=== PATIENT | female | born 1945 | race Caucasian/White ===

== ENCOUNTER → 2017-05-20 | Outpatient (CLI) | payer OTHER, BC ==
[~2017-05-20] MED LIST: ACYCLOVIR 200200 MG PO; ADULT LOW DOSE81 MG PO; ESTRACE0.5 MG PO; ESTRADIOL VAGINAL CR; FOSINOPRIL SODI20 MG PO; HYDROCHLOROTH12.5 MG PO; IBUPROFEN 800800 M1 PO; LIPITOR20 MG PO; LISINOPRIL20 MG PO; LOFIBRA160 MG PO; MACROBID 100 M100 M1 PO; MOBIC15 MG PO; MUCINEX600 MG PO; NEXIUM40 MG PO; NORCO 5-325 TA1 EACH PO; NORVASC 5 MG TAB5 MG PO; ONDANSETRON HCL4 M2 PO; PERCOCET PO; PROTONIX40 M2 PO; PYRIDIUM200 MG PO; SYMAX; TRAMADOL 50 MG50 MG PO; TRICOR145 MG PO; ZOFRAN ODT4 MG PO
== END ==
LOC: MRI 08:36
DX: M51.36 Other intervertebral disc degeneration, lumbar region (principal)

== ENCOUNTER → 2017-05-28 | Outpatient (CLI) | payer OTHER, BC ==
[~2017-05-28] VITALS: Ht 152.4 cm; Wt 94.8 kg
[~2017-05-28] MED LIST changes: +FOSINOPRIL SODI20 M1 PO; +HAIR, SKIN & N1 EAC1 PO; +MELOXICAM7.5 MG PO
[2017-05-28 12:42] VITALS: BP 163/74
== END | disposition home or self-care (01) ==
LOC: PAIN 07:31
DX: M54.16 Radiculopathy, lumbar region (principal); M54.9 Dorsalgia, unspecified; G89.29 Other chronic pain; I10 Essential (primary) hypertension; K21.9 Gastro-esophageal reflux disease without esophagitis; Z90.49 Acquired absence of other specified parts of digestive tract; E78.5 Hyperlipidemia, unspecified; Z98.890 Other specified postprocedural states; Z88.0 Allergy status to penicillin; Z88.8 Allergy status to other drugs, medicaments and biological substances; Z79.899 Other long term (current) drug therapy

== ENCOUNTER → 2017-06-12 | Outpatient (CLI) | payer OTHER, BC ==
[~2017-06-12] VITALS: Ht 152.4 cm; Wt 93.4 kg
[~2017-06-12] MED LIST changes: +VITAMIN D1000 UNI1 PO
--- NOTE | ~2017-06-12 | HPC ---
[facility] [place] [address] PAIN MANAGEMENT CONSULTATION Name: ANGELINA CRUZ Room #: REG CLCristobal Mccormick#: [id number] Admission: 06/12/17 Attend Phys: Jesus Molina DO Discharge: Date of : 47 Report #: [id number] THIS REPORT FOR: //name// CC: Mike Molina The patient is a 71-year-old female, prior seen in the pain clinic 05/28/2017, diagnosed with symptomatic lumbar radiculopathy, given midline epidural injection at L3-L4 for ongoing radicular symptoms. She returns to pain clinic today noting that injection afforded nominal relief. Complaining of ongoing pain, right buttock down the leg in an L3 distribution, anterior thigh into the groin. We reviewed MRI findings noting L3-L4 to have a right foraminal disk protrusion about 7 mm with moderate right ligamentum flavum hypertrophy and severe right neural foraminal stenosis. ASSESSMENT: Symptomatic lumbar radiculopathy, right L3 distribution. RECOMMENDATION: Discussion with the patient today about therapeutic option. Right L3-L4 transforaminal epidural injection today to help with ongoing radicular symptoms. If this does not afford adequate relief given a rather severe neural foraminal stenosis, we will refer to surgery for more definitive intervention. The patient is hopeful that she can avoid surgery. Physical exam shows 71-year-old female, BMI is elevated at 40.2. Vital signs are stable as noted in the EMR. Rises from chair using armrest, moderately antalgic gait favoring the right leg. Right hip flexion strength is diminished. Pain wraps around the hip, anterior thigh into the medial aspect compatible with an L3 distribution. ASSESSMENT: Symptomatic lumbar radiculopathy, component of axial back pain fairly nominal. PROCEDURE: Right L3-L4 transforaminal epidural injection under fluoroscopy. PROCEDURE: Transforaminal lumbar epidural injection under fluoroscopy. PROCEDURE NOTE: After both written and informed consent was obtained including risk of spinal cord damage, infection, increased pain and paralysis, the patient agreed to proceed. The patient was taken to the fluoroscopy suite, placed in a prone position with appropriate abdominal bolstering. After sterile prep with ChloraPrep and sterile drape, a skin wheal with 1% Xylocaine was raised. A 22 gauge 4-1/2 inch epidural Tuohy needle was inserted. From an oblique approach into the posterior-superior aspect of the right L3-L4 neural foramen with [address] [address] PAIN MANAGEMENT CONSULTATION Name: ANGELINA CRUZ EDY Room #: REG CLI Anny#: [id number] Admission: 06/12/17 Attend Phys: Jesus Molina DO Discharge: Date of : 47 Report #: [id number] continuous pressure on the glass syringe plunger for loss of resistance. Glass syringe was filled with 2 cc of 0.1 Xylocaine. The glass loss of resistance syringe was removed. A low volume extension tubing was connected, negative aspiration was accomplished for cerebrospinal fluid or blood. 1 mL of Omnipaque was injected which showed spread both within the epidural space and laterally along the nerve root. This was followed with 80 mg of triamcinolone plus 1 mL of 1.5% preservative-free Xylocaine. Needle was partially withdrawn, 0.5 mL of Xylocaine was injected to clear the needle and the needle was removed. The area was cleansed, band-aid was applied. The patient was allowed to ambulate to the recovery room, discharged in good and stable condition. By: [id number] Jesus Molina DO /nt
[2017-06-12 09:58] VITALS: BP 111/60
== END | disposition home or self-care (01) ==
LOC: PAIN 07:15
DX: M54.16 Radiculopathy, lumbar region (principal); Z68.41 Body mass index [BMI] 40.0-44.9, adult

== ENCOUNTER → 2017-06-22 | Outpatient (CLI) | payer OTHER, BC ==
[~2017-06-22] VITALS: Ht 152.4 cm; Wt 94.1 kg
[~2017-06-22] MED LIST changes: +NEURONTIN 300300 M1 PO
--- NOTE | ~2017-06-22 | HPC ---
[facility] [place] [address] PAIN MANAGEMENT CONSULTATION Name: ANGELINA CRUZ Room #: REG CL MFlora.#: [id number] Admission: 06/22/17 Attend Phys: Jesus Molina DO Discharge: Date of : 47 Report #: [id number] THIS REPORT FOR: //name// CC: Mike Molina The patient is a 71-year-old female, prior seen in the pain clinic on 06/12/2017, given a right L3-L4 transforaminal epidural injection at that time. however, initially 05/28/2017 midline injection at L3-L4 afforded only nominal relief. She returns to pain clinic today noting the second injection also afforded only nominal relief. She notes her pain is primarily low back, right buttock and leg and hip, numbness and pressure prevailing symptoms. She rates her pain 8 on VAS. She is using a walker to ambulate. She states the pain is exacerbated with any axial load including standing and walking. is lying down. PHYSICAL EXAMINATION: Unchanged from presentation, 71-year-old female, obese, with a BMI of 40.5 kilograms per meter squared. Blood pressure modestly elevated at 173/78, pulse 80, respirations are 12. Rises from chair using armrests, antalgic gait favoring the right leg. Decrease Right leg strength compared to the left. Subjective paresthesia in the right leg. DIAGNOSTIC STUDIES: Include MRI of the lumbar spine from 05/20/2017. L3-L4 notes right foraminal disk protrusion with migration associated with moderate ligamentum flavum thickening and facet arthropathy resolving and severe right neural foraminal stenosis, L4-L5 notes mild right paracentral disk bulge with minimal cephalad migration. Small annular tear at this level with moderate bilateral ligamentum flavum thickening. ASSESSMENT: Symptomatic lumbar radiculopathy secondary to spinal stenosis. The patient has failed 2 epidural injections, one midline and one transforaminal on the right L3-L4. RECOMMENDATIONS: At this point, we will refer the patient to neurosurgery for consideration for definitive intervention. Continue gabapentin, currently taking 300 mg at bedtime, we will gradually titrate this up to 1 in the morning and 2 at night. I renewed hydrocodone 5/325 one tablet every 4-6 hours as needed for pain, 100 hydrocodone tablets prescription generated, follow up p.r.n. The patient was discharged in good and stable condition. By: [id number] Jesus Molina DO /nt
[2017-06-22 13:15] VITALS: BP 173/78
== END | disposition home or self-care (01) ==
LOC: PAIN 07:23
DX: Z76.0 Encounter for issue of repeat prescription (principal); M48.06 Spinal stenosis, lumbar region; M54.16 Radiculopathy, lumbar region; Z98.890 Other specified postprocedural states; Z88.0 Allergy status to penicillin; Z88.8 Allergy status to other drugs, medicaments and biological substances; Z79.82 Long term (current) use of aspirin; Z79.899 Other long term (current) drug therapy

== ENCOUNTER → 2018-06-22 | Outpatient (CLI) | payer OTHER, BC ==
[~2018-06-22] VITALS: Ht 152.4 cm; Wt 91.5 kg
[~2018-06-22] MED LIST changes: +HYDROCODON-ACE1 EAC7 PO; +IRBESARTAN300 MG PO; +NEURONTIN600 MG PO; +VALIUM5 MG PO
--- NOTE | ~2018-06-22 | HPC ---
[address] [address] PAIN MANAGEMENT CONSULTATION Name: ANGELINA CRUZ Room #: REG CL MFlora.#: [id number] Admission: 06/22/18 Attend Phys: Mike Molina DO Discharge: Date of : 47 Report #: [id number] THIS REPORT FOR: //name// CC: Mike Saavedra DATE OF SERVICE: 06/22/2018 CHIEF COMPLAINT: Low back pain and right lower extremity pain with paresthesias. HISTORY OF PRESENT ILLNESS: As you know, the patient is a 72-year-old female who returns today in followup visit with pain level of 6/10. The patient underwent surgery with Dr. Gabe Rajput at the L3-L4 level. Apparently, the symptoms did not improve. She was advised there was nothing more they could offer from a surgical standpoint. She was referred to our clinic for adjustments in medication therapy with plan to return to see Dr. Rajput for continued medication management. We have started the patient on gabapentin and escalated her dose, but unfortunately the patient got confused with her dosing and has minimally increased her dosing. She continues to experience pain. She is denying any side effects to medication, returning to discuss the medications more thoroughly. She was referred to our clinic to trial epidural injection. She did not wish to trial those until which time medications did not improve symptoms. ALLERGIES: TAPE, PENICILLIN, CODEINE, AND CIPROFLOXACIN. CURRENT MEDICATIONS: Irbesartan, gabapentin, diazepam, hydrocodone, cholecalciferol, tramadol, meloxicam, fenofibrate, guaifenesin, pantoprazole, aspirin, Norvasc, and atorvastatin. SOCIAL HISTORY: The patient denies tobacco, alcohol, IV or illicit drug use. She is accompanied by her present in room today. IMAGING: No new imaging available. PQRS: The patient has osteoarthritis of low back. No history of rheumatoid arthritis. She is placing pain score again at 6/10. She is not a fall risk, has not had a fall in the last 3 months. She is not on blood thinners. She is treated for hypertension, opioids have been greater than 6 weeks. She is a low risk for opioid addiction. Functional assessment 55/70, severe interference with daily activity. PHYSICAL EXAMINATION: VITAL SIGNS: Blood pressure 169/75, pulse 70, respiratory rate [address] [facility] [address] [place] [address] PAIN MANAGEMENT CONSULTATION Name: ANGELINA CRUZ EDY Room #: REG CL M.R.#: [id number] Admission: 06/22/18 Attend Phys: Mike Molina DO Discharge: Date of : 47 Report #: [id number] unlabored. The patient is 100% on room air. Height 5 feet tall, weight 201.8 pounds, BMI calculated at 39.4. GENERAL: Well-developed, well-nourished, well-hydrated, morbidly obese 72-year-old female appearing stated age, placing pain score 6/10. HEENT: Normocephalic, atraumatic. Pupils equal, round, reactive to light. EXTREMITIES: Show no clubbing, no cyanosis, no edema. MUSCULOSKELETAL: Lower extremity strength is equal and symmetrical 5/5. Giveaway strength noted with hip flexion, knee extension on the left when compared to the right. Seated straight leg raising negative. Supine straight leg raising positive on the left. Marlee test negative. Modified Gaenslen's positive for axial low back pain. Lumbar provocation testing including extension, rotation, lateral flexion intensify axial back pain, no radiation of symptoms. ASSESSMENT: 1. Lumbar radiculopathy. 2. Displacement of lumbar intervertebral disk with radiculopathy. 3. Lumbosacral spondylosis with radiculopathy. 4. Failed lumbar spine surgery. 5. Lumbar degeneration. 6. Chronic intractable pain. PLAN: The patient returns today in followup visit: Apparently having some difficulty with understanding the titration of the gabapentin from last visit. Despite the fact that we wrote the prescription specifically out for her and provided her a simple to follow titration schedule in written form, she was unable to complete the titration of the medication. She is currently now taking from what she tells us 900 mg in the morning, 600 mg at noon, 1200 mg at night. To decrease the confusion, we will escalate the dose to 1200 mg 3 times a day. She is not having any side effects to medication and we recommend escalating to the top dose available for gabapentin. We have provided the patient a prescription of gabapentin 600 mg dose 2 tabs in morning, 2 tabs at noon, 2 tabs at night. She was given number 180 tablets with 2 refills, this is 3 months' worth on medication. She will watch for any side effects with these medications including somnolence, decreased mental acuity, disorientation and confusion. The patient and I discussed at length that her symptoms of lumbar radiculopathy will ultimately improve assuming no major pathology in the lumbar spine. [facility] [address] [place] [address] PAIN MANAGEMENT CONSULTATION Name: ANGELINA CRUZ EDY Room #: REG CLI LindseyFlora.#: [id number] Admission: 06/22/18 Attend Phys: Mike Molina DO Discharge: Date of : 47 Report #: [id number] believe that medication management along with exersice will improve pain and overall functional capacity. <ELECTRONICALLY SIGNED> By: Mike Molina DO 06/23/18 0838 [id number] 0056 Mike Molina DO /nt
[2018-06-22 09:10] VITALS: BP 169/75
== END ==
LOC: PAIN 07:03
DX: M47.27 Other spondylosis with radiculopathy, lumbosacral region (principal); M51.16 Intervertebral disc disorders with radiculopathy, lumbar region; G89.4 Chronic pain syndrome

== ENCOUNTER → 2018-10-05 | Outpatient (CLI) | payer OTHER, BC ==
[~2018-10-05] VITALS: Ht 152.4 cm; Wt 93.9 kg
[~2018-10-05] MED LIST changes: +DICLOFENAC POTA50 MG PO
--- NOTE | ~2018-10-05 | HPC ---
[facility] [address] [place] [address] PAIN MANAGEMENT CONSULTATION Name: ANGELINA CRUZ EDY Room #: REG Cristobal MFlora.#: [id number] Admission: 10/05/18 Attend Phys: Mike Molina DO Discharge: Date of : 47 Report #: [id number] THIS REPORT FOR: //name// CC: Mike Nino MD DATE OF SERVICE: 10/05/2018 REFERRING PHYSICIAN: Jerson Rajput MD CHIEF COMPLAINT: Low back pain, right lower extremity pain with paresthesias. HISTORY OF PRESENT ILLNESS: As noted, the patient is a 73-year-old female who returns today in followup visit with pain score of 2-6/10 depending on activity. The patient has undergone surgery with Dr. Jerson Rajput without improvement in symptoms unfortunately. She sought further evaluation, but was advised that no surgical option would be recommended. She was referred back to her PCP to continue medication therapy or make adjustments in treatment options. She was subsequently referred to our clinic as she was seen prior to her surgery and assisted with pain control with Dr. Jesus Molina. We saw the patient back in consultation and started the patient on medication as epidural injections do not appear to be effective in her treatment and she did not wish to look towards other options such as a spinal cord stimulator. Currently, she is taking hydrocodone, gabapentin and diclofenac. No side effects to these medications. She returns today in followup visit requesting refill on medications to continue analgesic benefit. She denies any new injury, new trauma or any changes in medical history since our visit of 07/20/2018. ALLERGIES: TAPE, PENICILLIN, CODEINE, AND CIPROFLOXACIN. CURRENT MEDICATIONS: Irbesartan, gabapentin, diazepam, hydrocodone, cholecalciferol, tramadol, meloxicam, fenofibrate, guaifenesin, pantoprazole, aspirin, Norvasc, and atorvastatin. SOCIAL HISTORY: The patient denies tobacco, alcohol, IV or illicit drug use. She is accompanied by her who is present in room today. IMAGING: There is no new imaging available. PQRS: The patient has osteoarthritic changes of the low back. No rheumatoid arthritis. She is placing pain intensity 2-6/10. She is not a fall risk, has not had a fall in the last 3 months. She is not on blood thinners. She is treated for hypertension. She is on opioids and has been for greater than 6 weeks. She has a low opioid addiction potential. Pain impact score 55-70, [address] [address] PAIN MANAGEMENT CONSULTATION Name: ANGELINA CRUZ [id number] Admission: 10/05/18 Attend Phys: Mike Molina DO Discharge: Date of : 47 Report #: [id number] severe, interference of daily activities secondary to pain. PHYSICAL EXAMINATION: VITAL SIGNS: Blood pressure 174/68, pulse 76, respiratory rate 20 and unlabored; the patient is 100% on room air. Height 5 feet tall, weight 207 pounds, BMI calculated 40.4. GENERAL: Well-developed, well-nourished, well-hydrated, class 3, morbidly obese 73-year-old female appearing stated age, placing current pain score anywhere from 2-6/10. HEENT: Normocephalic, atraumatic. Pupils equal, round, reactive to light. EXTREMITIES: Show no clubbing, no cyanosis, no edema. MUSCULOSKELETAL: Lower extremity strength remains equal and symmetrical 5/5. No giveaway strength noted today. Seated straight leg raising negative. Supine straight leg raising positive left at approximately 60 degree angle. Marlee test negative. Modified Gaenslen's positive for axial low back pain. Gait antalgic favoring left lower extremity over right. Muscle bulk and tone symmetrical in lower extremities. ASSESSMENT: 1. Lumbar radiculopathy. 2. Displacement of lumbar intervertebral disk with radiculopathy. 3. Lumbosacral spondylosis with radiculopathy. 4. Failed lumbar spine surgery. 5. Lumbar degeneration. 6. Chronic intractable pain. PLAN: 1. The patient returns today in followup visit requesting to continue medication management. She feels medications are working beneficially for pain control. At this point, she is reporting pain anywhere from 2-6/10, which is "tolerable for her." She returns requesting refill on medications, denying side effects of sleepiness, disorientation, confusion, mental slowing or constipation. 2. The patient was provided a prescription of gabapentin 1200 mg dose given two 600 mg tablets 3 times a day for a total of 180 tablets. She was provided this prescription with 2 refills, 3 months' worth of medication. The patient was advised if she runs low of this medication, she can contact our clinic. We will provide her a refill of this prescription via telephone. 3. The patient was provided a refill prescription on diclofenac potassium 50 mg dose 1 tab p.o. b.i.d. #60 with 2 refills. The patient was advised to remain on the medication if she is having no side effects such as dyspepsia, worsening blood pressure, lower extremity edema. We are utilizing this for the anti-inflammatory effects. The patient was advised she can receive refills of this medication via telephone conversation. 4. The patient was provided a prescription of hydrocodone 5/325 one tab p.o. q. 6 hours p.r.n. for pain, I have given the patient #120, releases of today, [address] [address] PAIN MANAGEMENT CONSULTATION Name: ANGELINA CRUZ EDY Room #: REG [facility] M.R.#: [id number] Admission: 10/05/18 Attend Phys: Mike Molina DO Discharge: Date of : 49 Report #: [id number] weeks from today, 2 months' worth of medication. The patient was advised this medication will require return visits to receive refills. We reviewed the fact that opiate medications are being used to provide analgesia adequate to support activities of daily living, not attempting to achieve a specific pain score on the 0-10 Visual Analog Scale. The current opiate medications are providing sufficient analgesia to allow the patient to participate in activities of daily living. The patient is not exhibiting any aberrant behavior suggestive of drug diversion. The patient is not having any adverse reactions to medications. The patient is not suffering from daytime somnolence or mental acuity changes. The patient is managing opiate-induced constipation with appropriate grnw-eic-kixguqo agents and dietary considerations. The patient was counseled on concern for caution with operating a motor vehicle while using opiate medications. A physical exam was performed and the patient's functional status was evaluated. All patients with back pain were advised against the bed rest greater than 4 days and were advised to return to normal activities. Pain score assessment was noted and the treatment plan was reviewed with the patient. All current medications, both prescribed and OTC were reviewed and reconciled on the electronic medical record. Tobacco screening was accomplished and smoking cessation was advised when indicated. BMI was noted and diet/exercise modification was recommended for all patients following outside normal parameters. I reviewed with the patient today their responsibilities to safeguard prescription medications, reviewed their responsibility to utilize medications only as prescribed by the physician. They are to seek and receive pain medications only from 1 physician group ( [facility]). They are to use 1 pharmacy and keep the clinic informed if they change pharmacies. Their responsibilities include making followup visits in a timely fashion and to avoid abrupt discontinuation of medication usage. Their responsibilities further include bringing their medications (bottles from the pharmacy with residual pills) to the visit for possible confirmation of pill counts and the patient understands it is their responsibility to submit to random drug screens to ensure both that the medications prescribed are present, and that no other controlled substances are present. All prescriptions provided today were generated electronically. The patient will return to our clinic in 2 months for medication management. <ELECTRONICALLY SIGNED> By: Mike Molina DO 10/06/18 0814 [id number] Mike Molina DO /nt
[2018-10-05 13:19] VITALS: BP 174/68
== END ==
LOC: PAIN 08:44
DX: M47.27 Other spondylosis with radiculopathy, lumbosacral region (principal); M51.16 Intervertebral disc disorders with radiculopathy, lumbar region; G89.4 Chronic pain syndrome; Z79.899 Other long term (current) drug therapy

== ENCOUNTER → 2018-12-14 | Outpatient (CLI) | payer OTHER, BC ==
[~2018-12-14] VITALS: Ht 152.4 cm; Wt 92.6 kg
[2018-12-14 08:51] VITALS: BP 175/67
--- NOTE | 2018-12-14 09:04 | NUR ---
Pain Clinic Assessment: 1. History of Osteoarthritis: B/L HANDS LOWER BACK History of Rheumatoid Arthritis: NO 2. Height: 5 ft. 0 in. 152.4 cm. Weight: 204.2 lb. oz. 92.625 kg. Patient's BMI: 39.9 3. Vital Signs: BP: 175/67 Pulse: 70 Resp: 20 Temp: 02 Sat: 100 ECG Mon: 4. Pain Intensity: 4-AVG, 7-IN AM'S 5. Fall Risk: Dizziness: N Needs help standing or walking: N Fallen in the last 3 months: N Fall risk comments: 6. Patient on Blood Thinner: None 7. History of Hypertension: Y 8. Opioid Therapy greater than 6 weeks: Y Opiate Contract Signed: 9. Risk Assessment Tool Provided: LOW RISK 10. Functional Assessment Tool: 55 11. Recreational Drug Use: Never Drug Type: Tobacco Use: Never Smoker Tobacco Type: Amount or Packs/day: How Many Years: Alcohol Use: Yes Frequency: Monthly Quant: 1/2-1 GLASS
--- NOTE | 2018-12-15 07:18 | HPC ---
[facility] [address] [place] [address] PAIN MANAGEMENT CONSULTATION Name: ANGELINA CRUZ Room #: REG CL MFlora.#: [id number] Admission: 12/14/18 Attend Phys: Bhavana Vincent Discharge: Date of : 49 Report #: [id number] THIS REPORT FOR: //name// CC: Bhavana Willams DATE OF SERVICE: 12/14/2018 CHIEF COMPLAINT: Low back pain, right lower extremity pain with paresthesias and right hip pain today. HISTORY OF PRESENT ILLNESS: This is a very pleasant 73-year-old female who returns to the pain clinic today with pain score of 4/10 as an average, pain worse in the morning stating 7/10. She complains of low back pain, left buttock, left leg pain, but she also today is complaining of right hip pain. She tells me that she had hip pain several years ago, had back surgery, the hip pain had resolved for a while and now has returned, wondering about possible injections of steroid from her primary care for that hip pain. She tells me she has pain worse with walking and standing and worse in the morning. Medications are very helpful and sitting as well as heat and cold. She denies any problems with constipation. She tells me overall she has been doing significantly well, even noticing a slight decrease in her numbness in her left leg. ALLERGIES: TAPE, PENICILLIN, CODEINE, CIPRO, and FLAGYL. CURRENT LIST OF MEDICATIONS: Hydrocodone 5/325 2-3 times a day, gabapentin 1200 mg every 8 hours, diclofenac potassium 50 mg every 12 hours, irbesartan 300 mg daily, vitamin D daily, Mucinex as needed, Protonix 40 mg daily, aspirin 81 mg daily, amlodipine 5 mg daily and atorvastatin 20 mg daily. PQRS: 1. She has arthritic changes in her lower back. Denies any rheumatoid arthritis. 2. Height is 5 feet, weight is 204, BMI is 39. 3. Vital signs: Blood pressure 175/67, pulse is 70, respirations 20, oxygen sat 100. 4. Pain score average of 02/16. 5. Fall risk. She denies dizziness. Does not need help walking or standing. Has not fallen in the last 3 months. 6. The patient is not on any blood thinners. She does take antihypertensive medicines. 7. Opiate therapy is greater than 6 weeks, therefore, an opioid contract will be placed on the chart. 8. Risk assessment tool is low. Her functional assessment is 55/70. 9. Recreational drug use, she denies. She is not a smoker. Does occasionally drink alcohol 1-2 glasses a month. I did check the prescription monitoring [address] [address] PAIN MANAGEMENT CONSULTATION Name: ANGELINA CRUZ Room #: REG CLCristobal Portillo.Bia#: [id number] Admission: 12/14/18 Attend Phys: Bhavana Vincent Discharge: Date of : 47 Report #: [id number] system. The patient is filling appropriately from her medications from Dr. Mike Molina. I do not see a drug screen in the chart. We will obtain that in the next visit as well as the contract on this patient. PHYSICAL EXAMINATION: GENERAL: This is a well-developed, well-nourished, well-hydrated, class 3, morbidly obese 73-year-old female who appears her stated age, placing her pain score from 4-7 today. HEENT: Normocephalic, atraumatic. Pupils equal, round and reactive to light. EXTREMITIES: No clubbing, no cyanosis, no edema. MUSCULOSKELETAL: Lower extremity strength remains equal and symmetrical at 5/5. She does state that she has slightly less numbness noted in her left leg than previous. The patient complains of right hip pain, worse with standing and abducting of her legs. ASSESSMENT: 1. Lumbar radiculopathy. 2. Displacement of lumbar intervertebral disk with radiculopathy. 3. Right hip pain. 4. Lumbosacral spondylosis with radiculopathy. 5. Failed lumbar spine surgery. 6. Lumbar degeneration. 7. Chronic intractable pain. We reviewed the fact that opiate medications are being used to provide analgesia adequate to support activities of daily living, not attempting to achieve a specific pain score on the 0-10 Visual Analog Scale. The current opiate medications are providing sufficient analgesia to allow the patient to participate in activities of daily living. The patient is not exhibiting any aberrant behavior suggestive of drug diversion. The patient is not having any adverse reactions to medications. The patient is not suffering from daytime somnolence or mental acuity changes. The patient is managing opiate-induced constipation with appropriate vkcw-lft-omyoumm agents and dietary considerations. The patient was counseled on concern for caution with operating a motor vehicle while using opiate medications. A physical exam was performed and the patient's functional status was evaluated. All patients with back pain were advised against the bed rest greater than 4 days and were advised to return to normal activities. Pain score assessment was noted and the treatment plan was reviewed with the patient. All current medications, both prescribed and OTC were reviewed and reconciled on the electronic medical record. Tobacco screening was accomplished and smoking cessation was advised when indicated. BMI was noted and diet/exercise modification was recommended for all patients following outside normal parameters. [address] [address] PAIN MANAGEMENT CONSULTATION Name: ANGELINA CRUZ Room #: REG CLI M.R.#: [id number] Admission: 12/14/18 Attend Phys: Bhavana Vincent Discharge: Date of : 47 Report #: [id number] I reviewed with the patient today their responsibilities to safeguard prescription medications, reviewed their responsibility to utilize medications only as prescribed by the physician. They are to seek and receive pain medications only from 1 physician group ( [facility]). They are to use 1 pharmacy and keep the clinic informed if they change pharmacies. Their responsibilities include making followup visits in a timely fashion and to avoid abrupt discontinuation of medication usage. Their responsibilities further include bringing their medications (bottles from the pharmacy with residual pills) to the visit for possible confirmation of pill counts and the patient understands it is their responsibility to submit to random drug screens to ensure both that the medications prescribed are present, and that no other controlled substances are present. All prescriptions provided today were generated electronically. PLAN: 1. The patient returns today for follow up of her medication continuation. She feels that the medications are helpful in relieving most of her pain. She would like refills of her hydrocodone, gabapentin and diclofenac today. Scripts given for hydrocodone 5/325 q. 6 hours, #120, for today and 4 weeks. This typically lasts the patient about 3 months for her medication of narcotics. Second medication, gabapentin 1200 mg 3 times a day, #180, with 2 additional refills and third medicine is diclofenac potassium 50 mg b.i.d. #60 with 2 additional refills. 2. The patient does complain of increasing right hip pain, wondering about seeing her primary care doctor for generalized steroid injection. I advised the patient that she is able to do that or our doctor could possibly give her a hip injection that is very centrally located in her right hip instead of a generalized cortisone injection. The patient feels that she should start with her primary care doctor for generalized steroid injection first. I did advise the patient to have that shot done by the primary care and obtain an x-ray of her right hip. If her pain subsides with the steroid injection, no need for her x-ray, but if it does not then to have the x-ray done and to make an appointment with Dr. Mike Molina for a possible right hip injection. The patient verbalizes understanding of this plan. 3. The patient will be seen in 3 months for followup for medications or sooner if needed for a hip injection. The patient seen in collaboration today with Dr. Mike Molina. <ELECTRONICALLY SIGNED> By: Bhavana Vincent 12/15/18 0718 [id number] 25 Bhavana Vincent /sheila
== END ==
LOC: PAIN 06:47
DX: M47.27 Other spondylosis with radiculopathy, lumbosacral region (principal); M51.16 Intervertebral disc disorders with radiculopathy, lumbar region; G89.4 Chronic pain syndrome; M25.551 Pain in right hip; Z79.899 Other long term (current) drug therapy

== ENCOUNTER → 2019-02-16 | Outpatient (CLI) | payer OTHER, BC ==
[~2019-02-16] VITALS: Ht 152.4 cm; Wt 90.4 kg
[~2019-02-16] MED LIST changes: +CELEBREX 200 M200 M1 PO
[2019-02-16 10:13] VITALS: BP 154/76
--- NOTE | 2019-02-16 10:31 | NUR ---
Pain Clinic Assessment: 1. History of Osteoarthritis: B/L HANDS LOWER BACK History of Rheumatoid Arthritis: NO 2. Height: 5 ft. 0 in. 152.4 cm. Weight: 199.2 lb. oz. 90.357 kg. Patient's BMI: 38.9 3. Vital Signs: BP: 154/76 Pulse: 69 Resp: 16 Temp: 02 Sat: 99 ECG Mon: 4. Pain Intensity: DAILY AVG W/ MED-3 5. Fall Risk: Dizziness: N Needs help standing or walking: N Fallen in the last 3 months: N Fall risk comments: 6. Patient on Blood Thinner: None 7. History of Hypertension: Y 8. Opioid Therapy greater than 6 weeks: Y Opiate Contract Signed: 9. Risk Assessment Tool Provided: LOW RISK 10. Functional Assessment Tool: 55 11. Recreational Drug Use: Never Drug Type: Tobacco Use: Never Smoker Tobacco Type: Amount or Packs/day: How Many Years: Alcohol Use: Yes Frequency: Monthly Quant: 1-2
--- NOTE | 2019-02-23 09:13 | HPC ---
[facility] [address] [place] [address] PAIN MANAGEMENT CONSULTATION Name: ANTHONYANGELINA EDY Room #: REG CL M..#: [id number] Admission: 02/16/19 ������������������ Attend Phys: Mike Molina DO Discharge: ������������������ Date of : 47 Report #: [id number] THIS REPORT FOR: //name// CC: Mike Saavedra DATE OF SERVICE: 02/22/2019 CHIEF COMPLAINT: Low back pain, right lower extremity pain and paresthesias. HISTORY OF PRESENT ILLNESS: As you know, the patient is a 73-year-old female who returns today in followup visit requesting to undergo a lumbar epidural injection under fluoroscopic guidance. The patient reports good efficacy with previous epidural injections, having received intermittent epidural injections since 2017. She returns today reporting pain score of around 3/10 with use of medications for pain. She indicates her pain is aching, intermittent, dull, sharp, radiating, exacerbated with activities such as standing, repositioning, pacing leaning forward, improves with sitting, medications and epidural injections. She returns today to undergo a lumbar epidural injection under fluoroscopic guidance to address recurrent lumbar radicular symptoms. She denies new injury, new trauma or any changes in medical history since our last visit. ALLERGIES: TAPE, PENICILLIN, CODEINE, CIPROFLOXACIN, FLAGYL. CURRENT MEDICATIONS: Hydrocodone, gabapentin, diclofenac potassium, irbesartan, vitamin D, Mucinex, Protonix, aspirin, amlodipine, atorvastatin. PQRS: The patient has known osteoarthritic changes of the lumbar spine. Denies rheumatoid arthritis. She places current pain score 3/10, not a fall risk, has not had a fall in the last 3 months, not on blood thinners, there is a history of hypertension. She has been on long-term opioid medication. She has a low addiction potential placing pain impact score 55/70, severe interference of daily activities secondary to pain. PHYSICAL EXAMINATION: VITAL SIGNS: Blood pressure 154/76, pulse 69, respiratory rate 16 and unlabored, the patient 99% on room air. Height 5 feet tall, weight 199.2 pounds, BMI calculated 38.9. GENERAL: Well-developed, well-nourished, well-hydrated exogenously obese 73-year-old female appearing stated age, placing current pain score at 3/10. HEENT: Normocephalic, atraumatic. Pupils equal, round, reactive to light. EXTREMITIES: Show no clubbing, no cyanosis, and no edema. MUSCULOSKELETAL: Lower extremity strength is symmetrical again today 5/5, intact to light touch from L1 through S2 dermatomes. Seated straight leg [address] [address] PAIN MANAGEMENT CONSULTATION Name: ANTHONYANGELINA EDY Room #: REG [facility] M.R.#: [id number] Admission: 02/16/19 ������������������ Attend Phys: Mike Molina DO Discharge: ������������������ Date of : 47 Report #: [id number] raising negative. Supine straight leg raising positive right. Marlee's test negative. Modified Gaenslen's positive for axial low back pain. Gait mildly antalgic favoring right lower extremity over left. ASSESSMENT: 1. Symptomatic lumbar radiculopathy. 2. Displacement of lumbar intervertebral disk with radiculopathy. 3. Lumbosacral spondylosis with radiculopathy. 4. Failed lumbar spine surgery. 5. Lumbar degeneration. 6. Chronic intractable pain. PLAN: 1. The patient returns today in followup visit to undergo a lumbar epidural injection under fluoroscopic guidance. She indicates pain level of 3/10. She has been advised of the risks and benefits of the procedure. These risks include but are not necessarily limited to bleeding, bruising, infection, worsening pain, no relief of pain, also risk of temporary or permanent muscle weakness, temporary or permanent nerve damage, possible paralysis and . The patient states understood and wished to proceed. 2. No medication changes made at today's visit. The patient will continue current medical therapy as previously prescribed. 3. The patient will contact our clinic once she has completed the x-ray of her right hip. Apparently, she has plans to undergo this imaging, will review the findings once they are available. 4. We will see the patient back in followup visit on an as needed basis. PROCEDURE NOTE DESCRIPTION OF PROCEDURE: L5-S1 paramedian epidural steroid injection under fluoroscopic guidance. After obtaining written consent, the patient was taken back to fluoroscopy suite, placed in prone position with pillow under abdomen to decrease lumbar lordosis. Skin overlying the lumbosacral area then prepped and draped in aseptic fashion. Lumbar intervertebral spaces were identified by AP fluoroscopy. Skin and subcutaneous tissue overlying target site of injection was anesthetized with 3 mL of 1% lidocaine. A 20-gauge 3-1/2 inch Tuohy needle advanced under fluoroscopic guidance towards the epidural space using a paramedian approach. Epidural space identified using loss of resistance to air technique. After negative aspiration for heme or cerebrospinal fluid, 1 mL of Omnipaque injected. Lumbar epidurogram confirmed using both AP and lateral fluoroscopy. After negative aspiration for heme or cerebrospinal fluid, 5 mL of a solution containing 2 mL 40 mg per mL, 80 mg total triamcinolone, 3 mL lidocaine 1% injected slowly. Needle retracted [address] [address] PAIN MANAGEMENT CONSULTATION Name: ANGELINA CRUZ [id number] Admission: 02/16/19 ������������������ Attend Phys: Mike Molina DO Discharge: ������������������ Date of : 47 Report #: [id number] alf, flushed with 1 mL of 1% lidocaine and then removed. Sterile bandage placed over injection site. No new motor deficits present in lower extremities following procedure. The patient tolerated procedure well, carefully escorted to recovery room in stable condition. No apparent complications. After meeting discharge criteria, the patient discharged home. ��������������������������������������������� <ELECTRONICALLY SIGNED> ���������������������������������������� By: Mike Molina DO ��������������������������������������������� 02/23/19 0913 [id number] [id number] Mike Molina DO /nt
== END ==
LOC: PAIN 07:08
DX: M47.27 Other spondylosis with radiculopathy, lumbosacral region (principal); M51.16 Intervertebral disc disorders with radiculopathy, lumbar region; G89.4 Chronic pain syndrome; Z79.899 Other long term (current) drug therapy

== ENCOUNTER → 2019-03-09 | Outpatient (CLI) | payer OTHER, BC ==
[~2019-03-09] VITALS: Ht 152.4 cm; Wt 87.5 kg
[~2019-03-09] MED LIST changes: +LIORESAL 10 MG10 MG PO
[2019-03-09 09:01] VITALS: BP 144/67
--- NOTE | 2019-03-09 09:11 | NUR ---
Pain Clinic Assessment: 1. History of Osteoarthritis: B/L HANDS LOWER BACK History of Rheumatoid Arthritis: NO 2. Height: 5 ft. 0 in. 152.4 cm. Weight: 193.0 lb. oz. 87.544 kg. Patient's BMI: 37.7 3. Vital Signs: BP: 144/67 Pulse: 67 Resp: 16 Temp: 02 Sat: 98 ECG Mon: 4. Pain Intensity: 2 5. Fall Risk: Dizziness: N Needs help standing or walking: N Fallen in the last 3 months: N Fall risk comments: 6. Patient on Blood Thinner: None 7. History of Hypertension: Y 8. Opioid Therapy greater than 6 weeks: Y Opiate Contract Signed: 9. Risk Assessment Tool Provided: LOW RISK 10. Functional Assessment Tool: 55 11. Recreational Drug Use: Never Drug Type: Tobacco Use: Never Smoker Tobacco Type: Amount or Packs/day: How Many Years: Alcohol Use: Yes Frequency: Quant:
--- NOTE | 2019-03-10 13:26 | HPC ---
[facility] [address] [place] [address] PAIN MANAGEMENT CONSULTATION Name: ANGELINA CRUZ Room #: REG CL MFlora.#: [id number] Admission: 03/09/19 ������������������ Attend Phys: Bhavana Vincent Discharge: ������������������ Date of : 47 Report #: [id number] THIS REPORT FOR: //name// CC: Bhavana Willams DATE OF SERVICE: 03/09/2019 CHIEF COMPLAINT: Low back pain, right lower extremity pain and paresthesias. HISTORY OF PRESENT ILLNESS: The patient returns to the pain clinic today for a refill of her medications. She is a very pleasant 73-year-old female that has been having ongoing low back pain and right leg pain. She tells me that she had an injection by Dr. Molina earlier in February. It helped her about 55%. She states some days she is better and other days that she has significant pain. She said it is worse when she stands upright and she has been having terrible leg cramps in the middle of the night. Her pain medicine has been helpful, but wondering if there is anything that we can do about her leg cramps. She thinks that also she may need to have another epidural. She does rate her pain score today as a 2 that has been radiating from her lower back into her buttock, right groin and down to her ankle on her right side only. ALLERGIES: TAPE, PENICILLIN, CODEINE, CIPRO and FLAGYL. MEDICATIONS: Hydrocodone 5/325 q.i.d., Celebrex 200 mg daily, gabapentin 1200 mg t.i.d., irbesartan 300 mg daily, vitamin D daily, Mucinex as needed, Protonix 40 mg daily, aspirin 81 mg daily, Norvasc 10 mg daily and Lipitor 20 mg daily. PATIENT'S PQRS: 1. She has a history of bilateral hand and lower back osteoarthritis and denies any rheumatoid arthritis. 2. Height is 5 feet, weight is 193, BMI is 37. 3. Vital signs: Blood pressure 144/67, pulse of 67, respirations 16, oxygen sat is 98. 4. Pain score is 2/10. 5. Fall risk. Denies dizziness, does not need help walking or standing, has not fallen in the last 3 months. 6. The patient is not on any blood thinners, but does take medicine for hypertension. 7. Opiate therapy is greater than 6 weeks; therefore, we will place opioid signed contract in her chart. Her risk assessment is low. Her functional assessment is 55/70. 8. Recreational drug use, she denies. She is not a smoker and occasionally drinks alcohol. We did check the prescription monitoring system[place] [address] PAIN MANAGEMENT CONSULTATION Name: ANGELINA CRUZ Room #: REG CLCristobal Mccormick#: [id number] Admission: 03/09/19 ������������������ Attend Phys: Bhavana Vincent Discharge: ������������������ Date of : 47 Report #: [id number] appropriately for her medications and is on time for those pills today. PHYSICAL EXAMINATION: GENERAL: This is a well-developed, well-nourished, well-hydrated exogenous obese 73-year-old female who appears her stated age, placing her pain score today at 2/10. HEENT: Normocephalic, atraumatic. Pupils equal, round and reactive to light. EXTREMITIES: No clubbing, no cyanosis, no edema. Does complain of increased muscle cramping at bedtime. MUSCULOSKELETAL: Lower extremity strength is symmetrical and 5/5. Does have pain that radiates from her lower back down the lateral aspect of her right leg following the L5-S1 distribution. Gait is mildly antalgic. ASSESSMENT: 1. Symptomatic lumbar radiculopathy. 2. Displacement of lumbar intervertebral disk with radiculopathy. 3. Lumbosacral spondylosis with radiculopathy. 4. Failed lumbar spine surgery. 5. Chronic intractable pain. We reviewed the fact that opiate medications are being used to provide analgesia adequate to support activities of daily living, not attempting to achieve a specific pain score on the 0-10 Visual Analog Scale. The current opiate medications are providing sufficient analgesia to allow the patient to participate in activities of daily living. The patient is not exhibiting any aberrant behavior suggestive of drug diversion. The patient is not having any adverse reactions to medications. The patient is not suffering from daytime somnolence or mental acuity changes. The patient is managing opiate-induced constipation with appropriate ealb-bxj-licdcon agents and dietary considerations. The patient was counseled on concern for caution with operating a motor vehicle while using opiate medications. A physical exam was performed and the patient's functional status was evaluated. All patients with back pain were advised against the bed rest greater than 4 days and were advised to return to normal activities. Pain score assessment was noted and the treatment plan was reviewed with the patient. All current medications, both prescribed and OTC were reviewed and reconciled on the electronic medical record. Tobacco screening was accomplished and smoking cessation was advised when indicated. BMI was noted and diet/exercise modification was recommended for all patients following outside normal parameters. I reviewed with the patient today their responsibilities to safeguard prescription medications, reviewed their responsibility to utilize medications only as prescribed by the physician. They are to seek and receive pain medications only from 1 physician group ( [facility]). They are to use [address] [place] [address] PAIN MANAGEMENT CONSULTATION Name: ANGELINA CRUZ EDY Room #: REG [facility] M.R.#: [id number] Admission: 03/09/19 ������������������ Attend Phys: Bhavana Vincent Discharge: ������������������ Date of : 47 Report #: [id number] pharmacy and keep the clinic informed if they change pharmacies. Their responsibilities include making followup visits in a timely fashion and to avoid abrupt discontinuation of medication usage. Their responsibilities further include bringing their medications (bottles from the pharmacy with residual pills) to the visit for possible confirmation of pill counts and the patient understands it is their responsibility to submit to random drug screens to ensure both that the medications prescribed are present, and that no other controlled substances are present. All prescriptions provided today were generated electronically. PLAN: 1. We discussed treatment options with the patient today. The patient tells me that she is having increased muscle spasms in her legs, especially at night. We discussed taking tonic water to see if that helps. Sometimes it is part of the healing process after she has had an epidural or it could also be that she is having tighter stenosis in her lumbar spine. We will have a trial of the baclofen. The patient may take 1-2 tablets at bedtime to see if this is helpful in reducing some of the leg cramping. I also explained to the patient that it may get better the longer she is out from her epidural. If the symptoms do not dissipate, she will call and schedule another lumbar epidural steroid injection by Dr. Molina and also seek an appointment with her neurosurgeon. 2. We did discuss repeating an MRI if she does continue to have problems and needs to seek a surgeon. I explained to her that lets give it a little bit longer, repeat her another epidural and at that time, we can order an MRI to take with her to the neurosurgeon's office if they request one. 3. Hydrocodone 5/325 q.i.d. was also given for release today and 4 week and gabapentin 600 mg, #180 with 2 additional refills. The patient to take 2 tablets 3 times a day. 4. The patient verbalizes understanding. The patient will call for an appointment for another epidural if her pain symptoms continue to worsen. 5. The patient is seen in collaboration today with Dr. Mike Molina. ��������������������������������������������� <ELECTRONICALLY SIGNED> ���������������������������������������� By: Bhavana Vincent ��������������������������������������������� 03/10/19 1326 [id number] 40 Bhavana Vincent /nt
== END ==
LOC: PAIN 07:00
DX: M47.27 Other spondylosis with radiculopathy, lumbosacral region (principal); M51.16 Intervertebral disc disorders with radiculopathy, lumbar region; G89.4 Chronic pain syndrome; Z79.899 Other long term (current) drug therapy

== ENCOUNTER → 2019-04-27 | Outpatient (CLI) | payer OTHER, BC ==
[~2019-04-27] VITALS: Ht 152.4 cm; Wt 89.6 kg
[~2019-04-27] MED LIST changes: +NABUMETONE 500500 M1 PO
[2019-04-27 08:13] VITALS: BP 174/74
--- NOTE | 2019-04-27 08:16 | NUR ---
Pain Clinic Assessment: 1. History of Osteoarthritis: B/L HANDS LOWER BACK History of Rheumatoid Arthritis: NO 2. Height: 5 ft. 0 in. 152.4 cm. Weight: 197.6 lb. oz. 89.631 kg. Patient's BMI: 38.6 3. Vital Signs: BP: 174/74 Pulse: 68 Resp: 16 Temp: 02 Sat: 98 ECG Mon: 4. Pain Intensity: 4 5. Fall Risk: Dizziness: N Needs help standing or walking: N Fallen in the last 3 months: N Fall risk comments: 6. Patient on Blood Thinner: None 7. History of Hypertension: Y 8. Opioid Therapy greater than 6 weeks: Y Opiate Contract Signed: 9. Risk Assessment Tool Provided: LOW RISK 10. Functional Assessment Tool: 55 11. Recreational Drug Use: Never Drug Type: Tobacco Use: Never Smoker Tobacco Type: Amount or Packs/day: How Many Years: Alcohol Use: Yes Frequency: Weekly Quant: 1
--- NOTE | 2019-05-10 13:03 | HPC ---
[facility] [address] [address] PAIN MANAGEMENT CONSULTATION Name: ANTHONYANGELINA EDY Room #: REG [facility] M.R.#: [id number] Admission: 04/27/19 ������������������ Attend Phys: Mike Molina DO Discharge: ������������������ Date of : 49 Report #: [id number] THIS REPORT FOR: //name// CC: Mike Saavedra DATE OF SERVICE: 04/27/2019 REFERRING PHYSICIAN: Mike Willams DO. CHIEF COMPLAINT: Low back pain, right lower extremity pain and paresthesias. HISTORY OF PRESENT ILLNESS: As you know, the patient is a 73-year-old female who returns today in followup visit reporting pain around 4/10. She states her pain begins in low back, radiates down the right leg. She also has some left leg pain that has recently begun. She indicates pain is chronic in nature, describes the pain as aching, intermittent, dull, sharp and radiating. She places pain at 4/10. She states that lying down and arising at night, tends to be the worst time for pain. Medications, heat and cold compresses, leaning weight to the opposite side, standing, pacing, getting up and moving and not sitting too long tends to improve pain. She returns today in followup visit to discuss any options to make changes in therapy in hopes of improving pain. She denies any new injury or trauma or any changes in medical history since our last visit. ALLERGIES: TAPE, PENICILLIN, CODEINE, CIPROFLOXACIN AND METRONIDAZOLE. CURRENT MEDICATIONS: Atorvastatin 20 mg once a day, amlodipine 5 mg per day, aspirin 81 mg per day, Protonix 40 mg per day, guaifenesin 600 mg twice a day, cholecalciferol 1000 units once a day, irbesartan 300 mg once a day, celecoxib 200 mg once a day, hydrocodone/acetaminophen 5/325 one tab p.o. q.4 hours p.r.n. for pain, gabapentin 600 mg, she is taking 3 times a day, baclofen 10 mg twice a day. SOCIAL HISTORY: The patient denies tobacco, alcohol, IV or illicit drug use. She is retired. She is unaccompanied today. IMAGING: No new imaging available. PQRS: The patient has known osteoarthritic changes in bilateral hands and lumbar spine. No rheumatoid arthritis. She is placing pain intensity at 4/10. She is not a fall risk, has not had a fall in the last 3 months. She is not on blood thinners. She is treated for hypertension. She is on chronic opioids and reportedly has a low opioid addiction potential based on our assessment tool. She is placing pain impact score of 55/70 [place] [address] PAIN MANAGEMENT CONSULTATION Name: ANGELINA CRUZ EDY Room #: REG [facility]#: [id number] Admission: 04/27/19 ������������������ Attend Phys: Mike Molina DO Discharge: ������������������ Date of : 47 Report #: [id number] interference of daily activities secondary to pain. PHYSICAL EXAMINATION: VITAL SIGNS: Blood pressure is 174/74, pulse 68, respiratory rate 16 and unlabored. The patient is 98% on room air. Height 5 feet tall, weight 197.6 pounds, BMI calculated 38.6. GENERAL: Well-developed, well-nourished, well-hydrated 73-year-old female appearing stated age, pain is rated around 4/10. HEENT: Normocephalic, atraumatic. Pupils equal, round, reactive to light. EXTREMITIES: Show no clubbing, no cyanosis, and no edema. MUSCULOSKELETAL: Lower extremity strength appears symmetrical, though giveaway strength is noted with hip flexion, knee extension on the right when compared to left. Pain is generated with this maneuver. Seated straight leg raising negative. Supine straight leg raising positive. Marlee's test is negative. Modified Gaenslen's positive for axial low back pain. ASSESSMENT: 1. Symptomatic lumbar radiculopathy. 2. Displacement of lumbar intervertebral disk with radiculopathy. 3. Lumbosacral spondylosis with radiculopathy. 4. Failed lumbar spine surgery. 5. Chronic intractable pain. PLAN: 1. The patient returns today in followup visit to discuss options for treatment. She is somewhat depressed about her ongoing condition. She has sought evaluation with Neurosurgery and they have advised conservative options at this point, no further surgical options are necessary given the recent findings. She returns to adjust medications possibly and discuss other options for treatment. She is denying side effects of the gabapentin at this time and will you have availability to increase the dose. We have considered this in the past and we have discussed this again today. The following adjustments were made. 2. The patient will increase her gabapentin from current dosing to 300 mg more per dosing, so a total of 900 mg more per day. I have given the patient a prescription of 300 mg tablets to add to her current dosing to escalate dose further. We are wishing to see if further escalation of gabapentin can improve overall symptoms. She is not having any side effects at this time, but we will watch for somnolence, decreased mental acuity, disorientation, confusion, mental slowing with the increase in medications. She will contact our clinic with reports of efficacy as she had increases the medication. 3. We discussed with the patient the possibility of having a look at a spinal cord stimulator as an option. We discussed this at length today. We have given the patient information both in digital and written form to evaluate. If she wishes to move forward with a spinal cord stimulator trial, she could certainly do so. We would then be referring her back to the Neurosurgery team for [facility] [address] [place] [address] PAIN MANAGEMENT CONSULTATION Name: ANTHONYANGELINA Room #: REG [facility] Ash.#: [id number] Admission: 04/27/19 ������������������ Attend Phys: Mike Molina DO Discharge: ������������������ Date of : 47 Report #: [id number] implantation of the device if it is successful. She will consider this as an option. 4. We discussed with the patient that exercise and core strengthening could improve her overall symptoms. The patient does not participate in any exercise program or any type of exercise activity. She remains essentially sedentary. We have advised the patient to look into either getting involved in an aqua therapy program in her area or possibly doing light walks at a local high school on a rubber track. There are lots of ways to get some exercise. The patient needs to look into. We highly recommend an exercise program where this will be formalized or in-formalized. We would be more than willing to provide a referral for the patient to physical therapy if they wish though I recommend the patient to look some information up and begin her own exercise program as she will remain more compliant if she has devise this program herself. 5. We will see the patient back in followup visit on an as needed basis. She will contact our clinic by phone to discuss the efficacy of the medication changes and whether or not she wishes to move forward with a spinal cord stimulator trial evaluation. ��������������������������������������������� <ELECTRONICALLY SIGNED> ���������������������������������������� By: Mike Molina DO ��������������������������������������������� 05/10/19 1303 0924 1413 Mike Molina DO /nt
== END ==
LOC: PAIN 06:45
DX: M47.27 Other spondylosis with radiculopathy, lumbosacral region (principal); M51.16 Intervertebral disc disorders with radiculopathy, lumbar region; G89.4 Chronic pain syndrome; Z79.899 Other long term (current) drug therapy

== ENCOUNTER → 2019-07-27 | Outpatient (CLI) | payer OTHER, BC ==
[~2019-07-27] VITALS: Ht 152.4 cm; Wt 89.4 kg
[2019-07-27 08:30] VITALS: BP 170/71
--- NOTE | 2019-07-27 08:44 | NUR ---
Pain Clinic Assessment: 1. History of Osteoarthritis: B/L HANDS LOWER BACK FINGERS History of Rheumatoid Arthritis: NO 2. Height: 5 ft. 0 in. 152.4 cm. Weight: 197.0 lb. oz. 89.359 kg. Patient's BMI: 38.5 3. Vital Signs: BP: 170/71 Pulse: 70 Resp: 16 Temp: 02 Sat: 100 ECG Mon: 4. Pain Intensity: 2-NOW, 0-6-SOBPWMAPS 5. Fall Risk: Dizziness: Y Needs help standing or walking: N Fallen in the last 3 months: N Fall risk comments: FEELING A LITTLE WOBBLY 6. Patient on Blood Thinner: None 7. History of Hypertension: Y 8. Opioid Therapy greater than 6 weeks: Y Opiate Contract Signed: 9. Risk Assessment Tool Provided: LOW RISK 10. Functional Assessment Tool: 4 11. Recreational Drug Use: Never Drug Type: Tobacco Use: Never Smoker Tobacco Type: Amount or Packs/day: How Many Years: Alcohol Use: Yes Frequency: Monthly Quant: 1-2
--- NOTE | 2019-07-28 07:18 | HPC ---
[facility] [place] [address] PAIN MANAGEMENT CONSULTATION Name: ANTHONYANGELINA EDY Room #: REG [facility] M..#: [id number] Admission: 07/27/19 ������������������ Attend Phys: Bhavana Vincent Discharge: ������������������ Date of : 47 Report #: [id number] THIS REPORT FOR: //name// CC: Bhavana Willams DATE OF SERVICE: 07/27/2019 CHIEF COMPLAINT: Low back pain, bilateral lower extremity pain and paresthesias. HISTORY OF PRESENT ILLNESS: This is a very pleasant 74-year-old female who returns to the pain clinic today for a refill of her medications. She is reporting her pain score at 2/10, but it does become worse at night, level of 5-6. She explains to me that she does have increasing leg muscle cramps, especially during the middle of the night when her pain is increased. Otherwise, it is in her low back that radiates into her bilateral hips, into her groins and then down into her legs. She feels at times she is doing significantly better. She has been having to walk more since her has been in the hospital due to a recent fall, but she also thinks that that has been beneficial in helping her relieve some of her pain. She reports the pain is an achy, intermittent, sharp spasm pain, which again is worse in the middle of the night. The medications, heat, standing and moving have been beneficial. She would like refills of these medications today and discussed possible injection of epidural. ALLERGIES: TAPE, PENICILLIN, CODEINE, CIPRO, METRONIDAZOLE. CURRENT MEDICATIONS: Hydrocodone 5/325 p.r.n.; Neurontin 1200 mg in the morning, 1200 mg at noontime, and 1800 mg at bedtime; nabumetone 500 mg 3 times a day; baclofen 10 mg p.r.n.; irbesartan; vitamin D; Protonix; aspirin; amlodipine 5 mg daily and Lipitor 20 mg daily. PQRS: 1. She has a history of osteoarthritis in her hands, lower back. Denies any rheumatoid arthritis. 2. Height is 5 feet, weight is 197, BMI is 38. 3. Vital signs 170/71, pulse is 70, respirations 16, oxygen sat is 100. 4. Pain score of 2-6. 5. Fall risk complains of slight dizziness, does not need help walking or standing, has not fallen in the last 3 months. 6. The patient is not on any blood thinners, but does take medicine for hypertension. 7. Opiate therapy is greater than 6 weeks; therefore, an opioid signed contract is on the chart. Her risk assessment is low. Functional assessment is 10. Recreational drug use, she denies. She is [place] [address] PAIN MANAGEMENT CONSULTATION Name: ANGELINA CRUZ EDY Room #: REG [facility]#: [id number] Admission: 07/27/19 ������������������ Attend Phys: Bhavana Vincent Discharge: ������������������ Date of : 47 Report #: [id number] drink alcohol. According to the prescription monitoring system, the patient is filling appropriately according to her medications and is due in a timely fashion. PHYSICAL EXAMINATION: GENERAL: This is a well-developed, well-nourished, well-hydrated 74-year-old female who appears her stated age, placing her current pain score at 2/10. HEENT: Normocephalic, atraumatic. Extraocular eye muscles are intact. Mucous membranes are moist. MUSCULOSKELETAL: Lower extremity strength appears symmetrical, has tenderness in her lumbar spine that radiates into her bilateral groins. Straight leg raising is negative. Modified Gaenslen positive for axial low back pain. ASSESSMENT: 1. Lumbar radiculopathy. 2. Displacement of lumbar intervertebral disk with radiculopathy. 3. Lumbosacral spondylosis with radiculopathy. 4. Failed lumbar spine surgery. 5. Chronic intractable pain. We reviewed the fact that opiate medications are being used to provide analgesia adequate to support activities of daily living, not attempting to achieve a specific pain score on the 0-10 Visual Analog Scale. The current opiate medications are providing sufficient analgesia to allow the patient to participate in activities of daily living. The patient is not exhibiting any aberrant behavior suggestive of drug diversion. The patient is not having any adverse reactions to medications. The patient is not suffering from daytime somnolence or mental acuity changes. The patient is managing opiate-induced constipation with appropriate qvku-ppj-fqelmun agents and dietary considerations. The patient was counseled on concern for caution with operating a motor vehicle while using opiate medications. A physical exam was performed and the patient's functional status was evaluated. All patients with back pain were advised against the bed rest greater than 4 days and were advised to return to normal activities. Pain score assessment was noted and the treatment plan was reviewed with the patient. All current medications, both prescribed and OTC were reviewed and reconciled on the electronic medical record. Tobacco screening was accomplished and smoking cessation was advised when indicated. BMI was noted and diet/exercise modification was recommended for all patients following outside normal parameters. I reviewed with the patient today their responsibilities to safeguard prescription medications, reviewed their responsibility to utilize medications only as prescribed by the physician. They are to seek and receive pain [address] [address] PAIN MANAGEMENT CONSULTATION Name: ANGELINA CRUZ Room #: REG [facility]..#: [id number] Admission: 07/27/19 ������������������ Attend Phys: Bhavana Vincent Discharge: ������������������ Date of : 47 Report #: [id number] medications only from 1 physician group ( [facility]). They are to use 1 pharmacy and keep the clinic informed if they change pharmacies. Their responsibilities include making followup visits in a timely fashion and to avoid abrupt discontinuation of medication usage. Their responsibilities further include bringing their medications (bottles from the pharmacy with residual pills) to the visit for possible confirmation of pill counts and the patient understands it is their responsibility to submit to random drug screens to ensure both that the medications prescribed are present, and that no other controlled substances are present. All prescriptions provided today were generated electronically. PLAN: 1. We discussed treatment options with the patient today. The patient finds her medication very beneficial. She does take hydrocodone, though very sparingly. Scripts given today for , #120. 2. Nabumetone 500 mg t.i.d., #90, with 2 additional refills. The patient does not have any GI upset. 3. Baclofen 10 mg b.i.d., #60, with 2 additional refills. The patient is experiencing some increased discomfort in the middle of the night in the form of muscle spasms. I encouraged her to take 2 at bedtime or take 1 at bedtime and then have the second one available in the middle of the night, if she needs to. I will increase this if she feels that she needs 3 a day, but she at this time does not. 4. Gabapentin 600 mg given, #210, with 2 additional refills. The patient takes 2 in the morning, 2 midday and 3 at bedtime. 5. The patient will call for an appointment with Dr. Mike Molina for a lumbar epidural steroid injection. Her last one was performed in February. She found that very beneficial in controlling her pain and would like a repeat of this injection. 6. The patient is seen in collaboration with Dr. Mike Molina. ��������������������������������������������� <ELECTRONICALLY SIGNED> ���������������������������������������� By: Bhavana Vincent ��������������������������������������������� 07/28/19 0718 0930 1150 Bhavana Vincent /nt
== END ==
LOC: PAIN 06:57
DX: M51.16 Intervertebral disc disorders with radiculopathy, lumbar region (principal); M47.27 Other spondylosis with radiculopathy, lumbosacral region; G89.4 Chronic pain syndrome; Z88.0 Allergy status to penicillin; Z88.8 Allergy status to other drugs, medicaments and biological substances; Z79.899 Other long term (current) drug therapy

== ENCOUNTER → 2019-11-16 | Outpatient (CLI) | payer OTHER, BC ==
[~2019-11-16] VITALS: Ht 152.4 cm; Wt 89.9 kg
[~2019-11-16] MED LIST changes: +BACLOFEN 10MG T10 MG PO
[2019-11-16 12:46] VITALS: BP 166/81
--- NOTE | 2019-11-16 12:52 | NUR ---
Pain Clinic Assessment: 1. History of Osteoarthritis: B/L HANDS LOWER BACK FINGERS History of Rheumatoid Arthritis: NO 2. Height: 5 ft. 0 in. 152.4 cm. Weight: 198.2 lb. oz. 89.903 kg. Patient's BMI: 38.7 3. Vital Signs: BP: 166/81 Pulse: 69 Resp: 18 Temp: 02 Sat: 95 ECG Mon: 4. Pain Intensity: 3 5. Fall Risk: Dizziness: N Needs help standing or walking: N Fallen in the last 3 months: N Fall risk comments: FEELING A LITTLE WOBBLY 6. Patient on Blood Thinner: None 7. History of Hypertension: Y 8. Opioid Therapy greater than 6 weeks: Y Opiate Contract Signed: 9. Risk Assessment Tool Provided: LOW RISK 10. Functional Assessment Tool: 4 11. Recreational Drug Use: Never Drug Type: Tobacco Use: Never Smoker Tobacco Type: Amount or Packs/day: How Many Years: Alcohol Use: Yes Frequency: Monthly Quant: 1-2
--- NOTE | 2019-11-22 08:39 | HPC ---
[facility] [address] [place] [address] PAIN MANAGEMENT CONSULTATION Name: ANTHONYANGELINA EDY Room #: REG CL M.R.#: [id number] Admission: 11/16/19 Attend Phys: Mike Molina DO Discharge: Date of : 47 Report #: [id number] THIS REPORT FOR: //name// CC: Mike Saavedra DATE OF SERVICE: 11/16/2019 REFERRING PHYSICIAN: Mike Willams DO CHIEF COMPLAINT: Low back pain, bilateral lower extremity pain with paresthesias, right greater than left. HISTORY OF PRESENT ILLNESS: As you know, the patient is a 74-year-old female who returns today in followup visit to undergo next in the series of lumbar epidural injections under fluoroscopic guidance. She reports good efficacy with previous epidural injection with a slow and progressive return of pain over the past couple of weeks leading to her return to undergo next in the series. She is placing pain score today no higher than 3/10. She reports greater than 70% improvement in overall pain with the epidural injection provided in February. She returns today in followup visit to undergo next in the series. She denies new injury, new trauma or any changes in medical history since our last visit. ALLERGIES: ADHESIVE TAPE, PENICILLIN, CODEINE, CIPROFLOXACIN and METRONIDAZOLE. CURRENT MEDICATIONS: Hydrocodone, Neurontin, nabumetone, baclofen, vitamin D, Protonix, aspirin, amlodipine and Lipitor. SOCIAL HISTORY: The patient denies tobacco, alcohol, IV or illicit drug use. She is accompanied by her today. PQRS: The patient has known arthritic changes of bilateral hands, lumbar spine. Denies rheumatoid arthritis. She is placing pain intensity 3/10. She is not a fall risk, has not had a fall in last 3 months, but does report that she is "a little wobbly now and again." She does use ambulatory devices when necessary. She is not on blood thinners, is treated for hypertension and is on chronic opioid. She has a low opiate addiction potential. Pain impact score 4 of 70 indicating mild interference in daily activities secondary to pain. PHYSICAL EXAMINATION: VITAL SIGNS: Blood pressure 166/81, pulse 69, respiratory rate 18 and unlabored. The patient is 95% on room air. Height 5 feet tall, weight 198.2 pounds, BMI calculated 38.7. GENERAL: Well-developed, well-nourished, well-hydrated exogenously obese 74-year-old female appearing stated age, pain is rated today around 3/10. [address] [address] PAIN MANAGEMENT CONSULTATION Name: ANGELINA CRUZ [id number] Admission: 11/16/19 Attend Phys: Mike Molina DO Discharge: Date of : 47 Report #: [id number] HEENT: Normocephalic, atraumatic. Pupils equal, round, reactive to light. EXTREMITIES: Show no clubbing, no cyanosis, and no edema. MUSCULOSKELETAL: Lower extremity strength remains symmetrical again today. Muscle bulk and tone is symmetrical in comparing left lower extremity over right. Seated straight leg raising negative. Supine straight leg raising is positive, right. Marlee's test is negative. Modified Gaenslen's positive for axial low back pain. Well-healed surgical scars over the lumbar spine. ASSESSMENT: 1. Symptomatic lumbar radiculopathy. 2. Displacement of lumbar intervertebral disk with radiculopathy. 3. Lumbosacral spondylosis with radiculopathy. 4. Failed lumbar spine surgery. 5. Chronic intractable pain. PLAN: 1. The patient has returned today in followup visit requesting to undergo a lumbar epidural injection under fluoroscopic guidance. She reports about an 70-80% improvement in overall pain with previous epidural injection lasting until just recently where she had had a slow and progressive return of symptoms. She has requested and we will perform this epidural injection today. She was advised risks and benefits of the procedure, states she understood and wished to proceed. 2. No medication changes made at today's visit. The patient will be making an appointment back to our clinic to receive refill of medications at our previously agreed upon appointment date. <ELECTRONICALLY SIGNED> By: Mike Molina DO 11/22/19 0839 1324 0122 Mike Molina DO /nt
--- NOTE | 2019-11-22 08:39 | P ---
[facility] [place] [address] [address] PROCEDURE REPORT Name: ANGELINA CRUZ Room #: REG CL [facility].#: [id number] Admission: 11/16/19 Attend Phys: Mike Molina DO Discharge: Date of : 47 Report #: [id number] THIS REPORT FOR: //name// CC: Mike Saavedra DATE OF SERVICE: 11/16/2019 PROCEDURE NOTE: DESCRIPTION OF PROCEDURE: L5-S1 right parasagittal epidural steroid injection under fluoroscopic guidance. After obtaining written consent, the patient was taken back to fluoroscopy suite, placed in prone position with pillow under abdomen to decrease lumbar lordosis. Skin overlying the lumbosacral area was then prepped and draped in aseptic fashion. The L5-S1 vertebral interspace identified by AP fluoroscopy. Skin and subcutaneous tissue overlying target site injection anesthetized with 3 mL of 1% lidocaine. A 20-gauge 3-1/2 inch Tuohy needle advanced under fluoroscopic guidance towards the epidural space using a left paracentral approach. Epidural space was identified using loss of resistance to air technique. After negative aspiration for heme or cerebrospinal fluid, 1 mL of Omnipaque injected. Lumbar epidurogram confirmed using both AP and lateral fluoroscopy. After negative aspiration for heme or cerebrospinal fluid, 5 mL of a solution containing 2 mL 40 mg per mL, 80 mg total triamcinolone along with 3 mL of lidocaine 1% injected slowly. Needle retracted skilled nursing, flushed with 1 mL of 1% lidocaine and then removed. Sterile bandage placed over injection site. No new motor deficits present in the lower extremities following procedure. The patient tolerated procedure well, carefully escorted to recovery room in stable condition. No apparent complication. After meeting discharge criteria, the patient discharged home. <ELECTRONICALLY SIGNED> By: Mike Molina DO 11/22/19 0839 1324 0124 Mike Molina DO /nt
== END | disposition home or self-care (01) ==
LOC: PAIN 06:50
DX: M51.16 Intervertebral disc disorders with radiculopathy, lumbar region (principal); M47.27 Other spondylosis with radiculopathy, lumbosacral region; G89.29 Other chronic pain; E66.9 Obesity, unspecified; Z88.8 Allergy status to other drugs, medicaments and biological substances; Z88.0 Allergy status to penicillin; Z79.899 Other long term (current) drug therapy; Z68.38 Body mass index [BMI] 38.0-38.9, adult; Z79.82 Long term (current) use of aspirin

== ENCOUNTER → 2019-11-22 | Outpatient (CLI) | payer OTHER, BC ==
[~2019-11-22] VITALS: Ht 152.4 cm; Wt 88.9 kg
[2019-11-22 10:03] VITALS: BP 147/73
--- NOTE | 2019-11-22 10:22 | NUR ---
Pain Clinic Assessment: 1. History of Osteoarthritis: B/L HANDS LOWER BACK FINGERS History of Rheumatoid Arthritis: NO 2. Height: 5 ft. 0 in. 152.4 cm. Weight: 196.0 lb. oz. 88.905 kg. Patient's BMI: 38.3 3. Vital Signs: BP: 147/73 Pulse: 64 Resp: 16 Temp: 02 Sat: 100 ECG Mon: 4. Pain Intensity: 3 5. Fall Risk: Dizziness: Y Needs help standing or walking: N Fallen in the last 3 months: N Fall risk comments: FEELING A LITTLE WOBBLY 6. Patient on Blood Thinner: None 7. History of Hypertension: Y 8. Opioid Therapy greater than 6 weeks: Y Opiate Contract Signed: 9. Risk Assessment Tool Provided: LOW RISK 10. Functional Assessment Tool: 4 11. Recreational Drug Use: Never Drug Type: Tobacco Use: Never Smoker Tobacco Type: Amount or Packs/day: How Many Years: Alcohol Use: Yes Frequency: Quant:
--- NOTE | 2019-11-23 09:38 | HPC ---
[facility] [address] [address] PAIN MANAGEMENT CONSULTATION Name: ANGELINA CRUZ Room #: REG [facility] M.Mian.#: [id number] Admission: 11/22/19 Attend Phys: Bhavana Vincent Discharge: Date of : 49 Report #: [id number] THIS REPORT FOR: //name// CC: Bhavana Saavedra DATE OF SERVICE: 11/22/2019 CHIEF COMPLAINT: Low back pain, bilateral lower extremity pain and paresthesias. HISTORY OF PRESENT ILLNESS: This is a very pleasant 74-year-old female who returns to the pain clinic today for refill of her medications. She is reporting a pain score 2/10 today. She feels that the lumbar epidural steroid injection performed by Dr. Mike Molina last week was very beneficial at least 50% better so far. She is able to sleep on her side without difficulty. She feels that she is also able to do more around the house. Currently, she has no pain at all with sitting. She does have pain when she does walk for prolonged periods of time. She feels that the weather also increases her pain. She characterizes her pain as a sharp numbness that is positional, depending on how she moves. She feels that the medications that she currently takes as well as periodic epidurals are very beneficial. She would like refills of those medicines today. ALLERGIES: TAPE, PENICILLIN, CODEINE, CIPRO, FLAGYL. CURRENT LIST OF MEDICATIONS: Gabapentin 600 mg tablets 2 in the morning, 2 midday, 3 at night, baclofen 20 mg at bedtime, nabumetone 500 mg t.i.d., hydrocodone 5/325 p.r.n., irbesartan, vitamin D, guaifenesin, Protonix, aspirin, Norvasc, and Lipitor. PQRS: 1. She has history of osteoarthritis in her bilateral hands, back and denies rheumatoid arthritis. 2. Height is 5 feet, weight is 196, BMI is 38. 3. Vital signs 147/73, pulse is 64, respirations 16, oxygen sat is 100. 4. Pain score is 3/10. 5. Complains of slight dizziness, does not need help walking and has not fallen in the last 3 months. 6. The patient is not on any blood thinners, but does take medicine for hypertension. She has opioid signed contract on the chart. Risk assessment tool is low. Functional assessment is /7. 7. Recreational drug use, she denies. She is not a smoker [place] [address] PAIN MANAGEMENT CONSULTATION Name: ANGELINA CRUZ Room #: REG LACHELLE Ash.#: [id number] Admission: 11/22/19 Attend Phys: Bhavana Vincent Discharge: Date of : 47 Report #: [id number] According to the prescription monitoring system, the patient is filling appropriately for her medications in a timely fashion. Her current morphine mEq is 20 MME if she takes all of her medications that we prescribed 1 day, which usually she does take less. PHYSICAL EXAMINATION: GENERAL: This is alert and orientated 74-year-old female who appears her stated age, placing her current pain score at 3/10. HEENT: Normocephalic, atraumatic. Extraocular eye muscles are intact. Mucous membranes are moist. MUSCULOSKELETAL: She has tenderness in her lumbar spine that radiates into her bilateral legs, greater on the right. Modified gaenslen is positive for axial low back pain. She has radicular symptoms following the L5-S1 dermatomal distribution. Her lower extremity strength appears symmetrical at 5/5. ASSESSMENT: 1. Lumbar radiculopathy. 2. Displacement of lumbar intervertebral disk with radiculopathy. 3. Lumbosacral spondylosis with radiculopathy. 4. Failed lumbar spine surgery. 5. Chronic intractable pain. 6. Medication management under terms of written opioid agreement. We reviewed the fact that opiate medications are being used to provide analgesia adequate to support activities of daily living, not attempting to achieve a specific pain score on the 0-10 Visual Analog Scale. The current opiate medications are providing sufficient analgesia to allow the patient to participate in activities of daily living. The patient is not exhibiting any aberrant behavior suggestive of drug diversion. The patient is not having any adverse reactions to medications. The patient is not suffering from daytime somnolence or mental acuity changes. The patient is managing opiate-induced constipation with appropriate hcza-xjo-tupdobh agents and dietary considerations. The patient was counseled on concern for caution with operating a motor vehicle while using opiate medications. PLAN: 1. We discussed treatment options with the patient today. The patient found her epidural steroid injection quite beneficial and has been only one week. She is stating at least 50% decrease in pain since that injection. 2. We will refill her medications of hydrocodone 5/325, #120 for today and 4-week release. The patient does take these sparingly. These medications will last her several months. These will be sent electronically by Dr. Mike Molina. 3. I will refill the gabapentin 600 mg 2 in the morning, 2 midday, 3 at night, quantity 210 with 2 additional refills as well as her baclofen 10 mg b.i.d., [address] [address] PAIN MANAGEMENT CONSULTATION Name: ANGELINA CRUZ Room #: REG LACHELLE Mccormick#: [id number] Admission: 11/22/19 Attend Phys: Bhavana Vincent Discharge: Date of : 47 Report #: [id number] quantity 60 with 2 additional refills. These will be sent electronically to [facility]. The patient is not needing refills and nabumetone currently. 4. The patient denies any problems with constipation or daytime sleepiness or side effects from her medications. She is doing quite well and will call as needed for another epidural in the future. The patient is seen today in collaboration with Dr. Mike Molina. <ELECTRONICALLY SIGNED> By: Bhavana Vincent 11/23/19 0938 [id number] 1825 Bhavana Vincent /nt
== END ==
LOC: PAIN 06:41
DX: M47.27 Other spondylosis with radiculopathy, lumbosacral region (principal); M51.16 Intervertebral disc disorders with radiculopathy, lumbar region; G89.4 Chronic pain syndrome; Z79.891 Long term (current) use of opiate analgesic; Z79.899 Other long term (current) drug therapy

== ENCOUNTER → 2019-12-23 | Outpatient (CLI) | payer OTHER, BC ==
[~2019-12-23] MED LIST changes: +GABAPENTIN600 M1 PO
== END ==
LOC: SJCVC 15:44
DX: I10 Essential (primary) hypertension (principal); E78.00 Pure hypercholesterolemia, unspecified; E78.1 Pure hyperglyceridemia; Z82.49 Family history of ischemic heart disease and other diseases of the circulatory system

== ENCOUNTER → 2020-01-24 | Outpatient (CLI) | payer OTHER, BC ==
[~2020-01-24] VITALS: Ht 152.4 cm; Wt 89.8 kg
[2020-01-24 09:12] VITALS: BP 146/72
--- NOTE | 2020-01-24 09:22 | NUR ---
Pain Clinic Assessment: 1. History of Osteoarthritis: B/L HANDS LOWER BACK FINGERS History of Rheumatoid Arthritis: NO 2. Height: 5 ft. 0 in. 152.4 cm. Weight: 197.9 lb. oz. 89.767 kg. Patient's BMI: 38.6 3. Vital Signs: BP: 146/72 Pulse: 65 Resp: 18 Temp: 02 Sat: 99 ECG Mon: 4. Pain Intensity: 3 5. Fall Risk: Dizziness: N Needs help standing or walking: N Fallen in the last 3 months: N Fall risk comments: FEELING A LITTLE WOBBLY 6. Patient on Blood Thinner: None 7. History of Hypertension: Y 8. Opioid Therapy greater than 6 weeks: Y Opiate Contract Signed: 9. Risk Assessment Tool Provided: LOW RISK 10. Functional Assessment Tool: 4 11. Recreational Drug Use: Never Drug Type: Tobacco Use: Never Smoker Tobacco Type: Amount or Packs/day: How Many Years: Alcohol Use: Yes Frequency: Quant:
--- NOTE | 2020-01-26 10:58 | HPC ---
[facility] [address] [place] [address] PAIN MANAGEMENT CONSULTATION Name: ANGELINA CRUZ EDY Room #: REG [facility] M..#: [id number] Admission: 01/24/20 Attend Phys: Bhavana Vincent Discharge: Date of : 47 Report #: [id number] THIS REPORT FOR: cc: Mike Willams James A. DO Hocker,Bhavana VEGA ~ DATE OF SERVICE: 01/24/2020 CHIEF COMPLAINT: Low back pain, bilateral lower extremity pain and paresthesias. HISTORY OF PRESENT ILLNESS: This is a very pleasant 74-year-old female who returns to the pain clinic today for refill of her medications. She is reporting a pain score of 3/10 today. It is located in her lower back that radiates down her bilateral legs. She feels that she is slowly having increasing pain in her calves with increased cramping at bedtime. She thinks that it may be time to schedule another epidural steroid injection, the previous injection in November helped significantly at least 80% in reducing her pain. She is able to sleep on her side without pain, which she had not been able to do for quite a while. She feels that since she is starting to sleep on her back again and having increased cramping that she believes she should schedule an appointment soon. She reports that her pain medication is very beneficial in reducing her pain as well and denies problem with constipation. ALLERGIES: TAPE, PENICILLIN, CODEINE, CIPRO and FLAGYL. MEDICATIONS: Hydrocodone 5/325, gabapentin, baclofen, nabumetone, irbesartan, vitamin D, Mucinex, Protonix, aspirin, amlodipine, Lipitor and B complex. PQRS: 1. She has a history of osteoarthritis in her hands, spine. Denies any rheumatoid arthritis. 2. Height is 5 feet, weight is 197, BMI is 38. Vital signs; 146/72, pulse is 65, respirations 18, oxygen sat is 99%. 3. Pain score is 3/10. 4. Denies dizziness, does not need help walking or standing, has not fallen in the last 3 months. 5. The patient is not on any blood thinners, but does take medicine for hypertension. Her opioid therapy is greater than 6 weeks; therefore, an opioid signed contract will be placed in her chart. She has not filled when out in the past. Her risk assessment is low. Functional assessment 02/13. The recreational drug use, she denies. She is not a smoker and occasionally drinks alcohol. According to the prescription monitoring system, the patient is filling her medicines in a timely fashion. She is not due to fill her opioids for 3 weeks, [address] [address] PAIN MANAGEMENT CONSULTATION Name: ANTHONYANGELINA EDY Room #: REG LACHELLE Mccormick#: [id number] Admission: 01/24/20 Attend Phys: Bhavana Vincent Discharge: Date of : 47 Report #: [id number] but she is needing other medications, thus her appointment today. Her morphine mEq according to the CDC guidelines is 20. PHYSICAL EXAMINATION: GENERAL: This is an alert and orientated 74-year-old female who appears her stated age, placing her current pain score at 3/10. HEENT: Normocephalic, atraumatic. Extraocular eye muscles are intact. Mucous membranes are moist. MUSCULOSKELETAL: She has tenderness in her lumbar spine that radiates down her bilateral legs following the L5-S1 dermatomal distribution. Her lower extremity strength judged to be 5/5 with good muscle strength and tone. She has negative straight leg raising. ASSESSMENT: 1. Lumbar radiculopathy. 2. Displacement of lumbar intervertebral disk with radiculopathy. 3. Failed lumbar spine surgery. 4. Lumbosacral spondylosis with radiculopathy. 5. Chronic intractable pain, requiring written opioid medications. We reviewed the fact that opiate medications are being used to provide analgesia adequate to support activities of daily living, not attempting to achieve a specific pain score on the 0-10 Visual Analog Scale. The current opiate medications are providing sufficient analgesia to allow the patient to participate in activities of daily living. The patient is not exhibiting any aberrant behavior suggestive of drug diversion. The patient is not having any adverse reactions to medications. The patient is not suffering from daytime somnolence or mental acuity changes. The patient is managing opiate-induced constipation with appropriate xjvc-zaj-wpvkjhn agents and dietary considerations. The patient was counseled on concern for caution with operating a motor vehicle while using opiate medications. A physical exam was performed and the patient's functional status was evaluated. All patients with back pain were advised against the bed rest greater than 4 days and were advised to return to normal activities. Pain score assessment was noted and the treatment plan was reviewed with the patient. All current medications, both prescribed and OTC were reviewed and reconciled on the electronic medical record. Tobacco screening was accomplished and smoking cessation was advised when indicated. BMI was noted and diet/exercise modification was recommended for all patients following outside normal parameters. I reviewed with the patient today their responsibilities to safeguard prescription medications, reviewed their responsibility to utilize medications only as prescribed by the physician. They are to seek and receive pain medications only from 1 physician group ([facility]). They are to use [address] [address] PAIN MANAGEMENT CONSULTATION Name: ANGELINA CRUZ [facility] [id number] Admission: 01/24/20 Attend Phys: Bhavana Vincent Discharge: Date of : 47 Report #: [id number] pharmacy and keep the clinic informed if they change pharmacies. Their responsibilities include making followup visits in a timely fashion and to avoid abrupt discontinuation of medication usage. Their responsibilities further include bringing their medications (bottles from the pharmacy with residual pills) to the visit for possible confirmation of pill counts and the patient understands it is their responsibility to submit to random drug screens to ensure both that the medications prescribed are present, and that no other controlled substances are present. All prescriptions provided today were generated electronically. PLAN: 1. We discussed treatment options with the patient today. The epidural that she received in November was quite beneficial in controlling her pain and allowing her to sleep better. She is slowly having symptoms return. We will schedule her back to have a lumbar epidural steroid injection by Dr. Mike Molina in early February. 2. We will refill her medications of baclofen 10 mg, #60 with 2 additional refills; gabapentin 600 mg 2 in the morning, 2 midday and 3 at night, #210; nabumetone 500 mg 3 times a day, #90 with 3 refills. These will all be sent electronically. 3. Hydrocodone will be sent electronically by Dr. Mike Molina for , #120 for today and 4 weeks supply. 4. The patient is seen in collaboration with Dr. Mike Molina. <ELECTRONICALLY SIGNED> By: Bhavana Vincent 01/26/20 1058 1052 1148 Bhavana Vincent /nt
== END ==
LOC: PAIN 06:43
DX: M51.16 Intervertebral disc disorders with radiculopathy, lumbar region (principal); M47.817 Spondylosis without myelopathy or radiculopathy, lumbosacral region; G89.4 Chronic pain syndrome; Z88.8 Allergy status to other drugs, medicaments and biological substances; Z79.899 Other long term (current) drug therapy

== ENCOUNTER → 2020-02-24 | Outpatient (CLI) | payer OTHER, BC | LOC: SJCVCIMAG 10:17 | DX: I08.2 Rheumatic disorders of both aortic and tricuspid valves (principal); R94.31 Abnormal electrocardiogram [ECG] [EKG]; E78.5 Hyperlipidemia, unspecified; I10 Essential (primary) hypertension; Z79.82 Long term (current) use of aspirin; Z79.899 Other long term (current) drug therapy; Z88.5 Allergy status to narcotic agent; Z88.0 Allergy status to penicillin; Z82.49 Family history of ischemic heart disease and other diseases of the circulatory system ==

== ENCOUNTER → 2020-02-28 | Outpatient (CLI) | payer OTHER, BC ==
[~2020-02-28] VITALS: Ht 152.4 cm; Wt 90.5 kg
[2020-02-28 09:11] VITALS: BP 163/63
--- NOTE | 2020-02-28 09:26 | NUR ---
Pain Clinic Assessment: 1. History of Osteoarthritis: B/L HANDS LOWER BACK FINGERS History of Rheumatoid Arthritis: NO 2. Height: 5 ft. 0 in. 152.4 cm. Weight: 199.6 lb. oz. 90.538 kg. Patient's BMI: 39.0 3. Vital Signs: BP: 163/63 Pulse: 70 Resp: 20 Temp: 02 Sat: 98 ECG Mon: 4. Pain Intensity: 5 5. Fall Risk: Dizziness: N Needs help standing or walking: N Fallen in the last 3 months: N Fall risk comments: FEELING A LITTLE WOBBLY 6. Patient on Blood Thinner: None 7. History of Hypertension: Y 8. Opioid Therapy greater than 6 weeks: Y Opiate Contract Signed: 02/28/20 9. Risk Assessment Tool Provided: LOW RISK 10. Functional Assessment Tool: 4 11. Recreational Drug Use: Never Drug Type: Tobacco Use: Never Smoker Tobacco Type: Amount or Packs/day: How Many Years: Alcohol Use: Yes Frequency: Quant:
--- NOTE | 2020-02-29 12:25 | HPC ---
[facility] [place] [address] PAIN MANAGEMENT CONSULTATION Name: ANGELINA CRUZ Room #: REG LACHELLE Ash.#: [id number] Admission: 02/28/20 Attend Phys: Mike Molina DO Discharge: Date of : 47 Report #: [id number] THIS REPORT FOR: cc: Mike Willams James A. DO Johnson, James E. DO ~ DATE OF SERVICE: 02/28/2020 CHIEF COMPLAINT: Low back pain, bilateral lower extremity pain with paresthesias. HISTORY OF PRESENT ILLNESS: As you know, the patient is a very pleasant 74-year-old female returning in followup visit to undergo next in the series of lumbar epidural injections under fluoroscopic guidance. The patient is reporting pain today at around 5/10. The previous epidural injection gave improvement in symptoms of greater than 70%, which has just recently begun to wane in its activity. She is indicating no new injury or trauma. She returns today in followup visit to undergo next in the series of lumbar epidural injections. She states the combination of epidural injections with medications are working beneficially for pain control. She is denying side effects of medication at this time. She returns today for the next in the series of lumbar epidural injections to address lumbar radicular symptoms. ALLERGIES: ADHESIVE TAPE, PENICILLIN, CODEINE, CIPROFLOXACIN, FLAGYL. CURRENT MEDICATIONS: See chart. SOCIAL HISTORY: The patient denies tobacco, alcohol, IV or illicit drug use. She is retired, retired years ago, unaccompanied at today's visit. IMAGING: No new imaging available. PQRS: The patient has known osteoarthritic changes of the lumbar spine, bilateral hands. No rheumatoid arthritis. She is placing pain intensity today 5/10. She is not a fall risk and has not had a fall in last 3 months. She is not on blood thinners, but is treated for hypertension. She is on chronic opioids with a low opioid addiction potential based on our assessment tool. Pain impact score is 4 of 70 indicating mild interference of daily activities secondary to pain. PHYSICAL EXAMINATION: VITAL SIGNS: Blood pressure 163/63, pulse 70, respiratory rate 20 and unlabored. The patient is 98% on room air. Height 5 feet tall, weight 199.6 pounds, BMI calculated 39.0. GENERAL: Well-developed, well-nourished, well-hydrated, [place] [address] PAIN MANAGEMENT CONSULTATION Name: ANGELINA CRUZ Room #: REG [facility].#: [id number] Admission: 02/28/20 Attend Phys: Mike Molina DO Discharge: Date of : 47 Report #: [id number] 74-year-old female appearing stated age, pain is rated today 5/10. HEENT: Normocephalic, atraumatic. Pupils equal, round, reactive to light. EXTREMITIES: Show no clubbing, no cyanosis, no edema. MUSCULOSKELETAL: The patient has well-healed surgical scar over the lumbar spine, bilateral legs are equal and symmetrical in bulk and strength. Seated straight leg raising negative. Supine straight leg raising positive. FABERs test is negative. Modified Gaenslen's positive for axial low back pain with restriction of motion, mainly with rotation and extension. ASSESSMENT: 1. Symptomatic lumbar radiculopathy. 2. Displacement of lumbar intervertebral disk with radiculopathy. 3. Failed lumbar spine surgery. 4. Lumbosacral spondylosis with radiculopathy. 5. Chronic intractable pain. 6. Opioid medication management. PLAN: 1. The patient returns today in followup visit to undergo lumbar epidural injection under fluoroscopic guidance. She reported excellent benefit with previous epidural injection. She returns today in followup visit with slowly recurring pain, now rating pain at around 5/10. The patient denies injury or trauma that may have led to symptom recurrence. She returns today requesting to undergo lumbar epidural injection under fluoroscopic guidance. The patient was advised risks and benefits of a lumbar epidural injection. These risks include but are not necessarily limited to bleeding, bruising, infection, worsening pain, no relief of pain, also risk of temporary or permanent muscle weakness, temporary or permanent nerve damage, possible paralysis, post-dural puncture headache and . The patient states understood and wished to proceed. We also discussed her risk during the COVID pandemic with the exposure of steroid increasing her potential risk of isiah the infection as well as increasing her risk of worsening symptoms with the use of steroids in an already infected the patient. The patient states she understands her risks with COVID-19 and wishes to continue. 2. The patient was provided no changes in medication management at this visit. She will continue current medical therapy as previously prescribed. 3. We will see the patient back in followup visit on an as needed basis for the next in the series of lumbar epidural injections. We will see her back in approximately 1 month for medication management. PROCEDURE NOTE DESCRIPTION OF PROCEDURE: L5-S1 right parasagittal epidural steroid injection under fluoroscopic guidance. [address] [address] PAIN MANAGEMENT CONSULTATION Name: ANGELINA CRUZ Room #: REG [facility] Ash#: [id number] Admission: 02/28/20 Attend Phys: Mike Molina DO Discharge: Date of : 49 Report #: [id number] After obtaining written consent, the patient was taken back to fluoroscopy suite, placed in prone position with pillow under abdomen to decrease lumbar lordosis. Skin overlying lumbosacral area then prepped and draped in aseptic fashion. L5-S1 vertebral interspace identified by AP fluoroscopy. Skin and subcutaneous tissue overlying target site injection anesthetized with 3 mL of 1% lidocaine. A 20-gauge 3-1/2 inch Tuohy needle advanced under fluoroscopic guidance towards the epidural space using right parasagittal approach. Epidural space identified using loss of resistance to air technique. After negative aspiration for heme or cerebrospinal fluid, 1 mL of Omnipaque injected. Lumbar epidurogram confirmed using both AP and lateral fluoroscopy. After negative aspiration for heme or cerebrospinal fluid, 5 mL of a solution containing 2 mL 40 mg per mL, 80 mg total triamcinolone along with 3 mL of preservative-free normal saline was injected slowly. Needle retracted long term, flushed with 1 mL of 1% lidocaine and removed. Sterile bandage placed over injection site. There were no new motor deficits present in the lower extremities following procedure. The patient tolerated the procedure well, carefully escorted to recovery room in stable condition. No apparent complications. After meeting discharge criteria, the patient discharged home. <ELECTRONICALLY SIGNED> By: Mike Molina DO 02/29/20 1225 1143 1248 Mike Molina, /nt
== END | disposition home or self-care (01) ==
LOC: PAIN 02-14 09:38
DX: M51.16 Intervertebral disc disorders with radiculopathy, lumbar region (principal); M47.27 Other spondylosis with radiculopathy, lumbosacral region; G89.29 Other chronic pain; M96.1 Postlaminectomy syndrome, not elsewhere classified; I10 Essential (primary) hypertension; Z98.890 Other specified postprocedural states; Z79.899 Other long term (current) drug therapy; Z79.891 Long term (current) use of opiate analgesic; Z88.0 Allergy status to penicillin; Z88.8 Allergy status to other drugs, medicaments and biological substances

== ENCOUNTER → 2020-05-09 | Outpatient (CLI) | payer OTHER, BC ==
[~2020-05-09] VITALS: Ht 152.4 cm; Wt 88.8 kg
[2020-05-09 08:54] VITALS: BP 160/76
--- NOTE | 2020-05-09 09:13 | NUR ---
Pain Clinic Assessment: 1. History of Osteoarthritis: B/L HANDS LOWER BACK FINGERS History of Rheumatoid Arthritis: NO 2. Height: 5 ft. 0 in. 152.4 cm. Weight: 195.8 lb. oz. 88.814 kg. Patient's BMI: 38.2 3. Vital Signs: BP: 160/76 Pulse: 67 Resp: 16 Temp: 02 Sat: 99 ECG Mon: 4. Pain Intensity: 4 5. Fall Risk: Dizziness: N Needs help standing or walking: N Fallen in the last 3 months: N Fall risk comments: FEELING A LITTLE WOBBLY 6. Patient on Blood Thinner: None 7. History of Hypertension: Y 8. Opioid Therapy greater than 6 weeks: Y Opiate Contract Signed: 02/28/20 9. Risk Assessment Tool Provided: LOW RISK 10. Functional Assessment Tool: 4 11. Recreational Drug Use: Never Drug Type: Tobacco Use: Never Smoker Tobacco Type: Amount or Packs/day: How Many Years: Alcohol Use: Yes Frequency: Quant:
--- NOTE | 2020-05-10 10:47 | HPC ---
[facility] [address] [address] PAIN MANAGEMENT CONSULTATION Name: ANGELINA CRUZ Room #: REG [facility] M.Mian.#: [id number] Admission: 05/09/20 Attend Phys: Bhavana Vincent Discharge: Date of : 49 Report #: [id number] THIS REPORT FOR: cc: Mike Willams James A. DO Hocker, Amanda CNS ~ CC: Mike Crsiostomo MD DATE OF SERVICE: 05/09/2020 CHIEF COMPLAINT: Low back pain, bilateral lower extremity pain with paresthesias. HISTORY OF PRESENT ILLNESS: This is a very pleasant 74-year-old female who is well known to the pain clinic. She returns today for medication management. She is complaining of pain in her lower back and bilateral legs, rating as a 4/10. She feels that the epidural steroid injection that Dr. Mike Molina performed in February was beneficial in reducing a significant portion of her pain at 70-80%. She has noticed ability to sleep better without pain since that injection. She is able to get by with fewer pain pills on some days, though the weather and housework does increase her pain. She states that her recently fell and has been needing more assistance so she has been having increased pain due to helping him with his activities of daily living. Their family has been staying with them which has been helpful, but they are getting ready to move out of the house. She is slightly worried that she may have increased pain by caring for him. The patient states that the medications, standing and movement are beneficial. She denies any problems with constipation or daytime sleepiness. Today, the patient is complaining of increased bruising in her arms and legs. She is wondering if it is from the nabumetone. She does take a low dose aspirin, which she has taken for years. The nabumetone is not new to her, but she has noticed increased bruising over time and is wondering if we may rotate this medication to a different anti-inflammatory. ALLERGIES: ADHESIVE TAPE, PENICILLIN, CODEINE, CIPRO AND FLAGYL. CURRENT LIST OF MEDICATIONS: Hydrocodone 5/325 p.r.n. Gabapentin 600 mg 2 in the morning, 2 midday and 3 at night. Nabumetone, baclofen p.r.n., vitamin D, Mucinex, Protonix, aspirin, amlodipine and Lipitor. PQRS: 1. She has known arthritic changes in her spine and hands. Denies rheumatoid arthritis. 2. Height is 5 feet, weight is 195, BMI is 38. Vital signs, 160/76, pulse is [facility] [address] [place] [address] PAIN MANAGEMENT CONSULTATION Name: ANGELINA CRUZ EDY Room #: REG [facility] M.R.#: [id number] Admission: 05/09/20 Attend Phys: Bhavana Vincent Discharge: Date of : 49 Report #: [id number], respirations 16, oxygen sat is 99, pain score is 4/10. Denies dizziness, does not need help walking or standing, has not fallen in the last 3 months. 3. The patient is not on any blood thinners, but does take medicine for hypertension. Her opioid therapy is greater than 6 weeks; therefore, an opioid signed contract is on the chart. Risk assessment tool is low. Functional assessment is 470. 4. Recreational drug use, she denies. She is not a smoker and occasionally drinks alcohol. According to the prescription monitoring system, she is due to fill her medications, filling them in a timely fashion. Her morphine milliequivalent according to the CDC guidelines is 20. PHYSICAL EXAMINATION: GENERAL: This is a well-developed, well-nourished, well-hydrated, morbidly obese 74-year-old female who appears her stated age, placing her current pain score at 4/10. HEENT: Normocephalic, atraumatic. Pupils equal, round and reactive to light. She is wearing a mask. EXTREMITIES: No clubbing, no cyanosis, no edema. She does have some ecchymosis areas on her arms and legs at various places. MUSCULOSKELETAL: Her bilateral legs are equal and symmetrical in bulk and strength. Seated straight leg raising is negative. Modified Gaenslen is positive for axial low back pain. ASSESSMENT: 1. Symptomatic lumbar radiculopathy. 2. Failed lumbar spine surgery. 3. Displacement of lumbar intervertebral disk with radiculopathy. 4. Chronic intractable pain. 5. Lumbosacral spondylosis with radiculopathy. 6. Opioid medication management under terms of agreement. We reviewed the fact that opiate medications are being used to provide analgesia adequate to support activities of daily living, not attempting to achieve a specific pain score on the 0-10 Visual Analog Scale. The current opiate medications are providing sufficient analgesia to allow the patient to participate in activities of daily living. The patient is not exhibiting any aberrant behavior suggestive of drug diversion. The patient is not having any adverse reactions to medications. The patient is not suffering from daytime somnolence or mental acuity changes. The patient is managing opiate-induced constipation with appropriate lvxz-vbq-guztzul agents and dietary considerations. The patient was counseled on concern for caution with operating a motor vehicle while using opiate medications. PLAN: [address] [address] PAIN MANAGEMENT CONSULTATION Name: ANGELINA CRUZ [id number] Admission: 05/09/20 Attend Phys: Bhavana Vincent Discharge: Date of : 49 Report #: [id number] 1. We discussed treatment options with the patient today. The patient has noted increased bruising on her arms and legs. She is wondering if it is from the nabumetone. The patient does also take aspirin 81 mg per day. We will rotate her to meloxicam 15 mg enabling the patient to take a half a tablet once a day or half a tablet twice a day if needed to see if the bruising does decrease. 2. The patient states she does not need her baclofen. Her leg cramping has dissipated since she had the lumbar epidural steroid injection. 3. Dr. Francisco Fuentes collaborated care today and will write her medications of hydrocodone 5/325, #120 for today and 4 weeks supply, who is covering for Dr. Mike Molina. <ELECTRONICALLY SIGNED> By: Bhavana Vincent 05/10/20 1047 [id number] [id number] Bhavana Vincent /nt
== END ==
LOC: PAIN 06:58
PROVIDERS: ATTEND Clinical Nurse Specialist Adult Health
DX: M51.16 Intervertebral disc disorders with radiculopathy, lumbar region (principal); M47.26 Other spondylosis with radiculopathy, lumbar region; M19.042 Primary osteoarthritis, left hand; M19.041 Primary osteoarthritis, right hand; Z79.891 Long term (current) use of opiate analgesic

== ENCOUNTER → 2020-08-21 | Outpatient (CLI) | payer OTHER, BC ==
[~2020-08-21] VITALS: Ht 152.4 cm; Wt 89.4 kg
[~2020-08-21] MED LIST changes: +NABUMETONE 500500 M2 PO; +VESICARE 5 MG TA5 M1 PO
[2020-08-21 11:05] VITALS: BP 168/60
--- NOTE | 2020-08-21 11:25 | NUR ---
Pain Clinic Assessment: 1. History of Osteoarthritis: B/L HANDS LOWER BACK FINGERS History of Rheumatoid Arthritis: DENIES 2. Height: 5 ft. 0 in. 152.4 cm. Weight: 197.2 lb. oz. 89.449 kg. Patient's BMI: 38.5 3. Vital Signs: BP: 168/60 Pulse: 66 Resp: 18 Temp: 02 Sat: 99 ECG Mon: 4. Pain Intensity: 4 5. Fall Risk: Dizziness: N Needs help standing or walking: N Fallen in the last 3 months: N Fall risk comments: FEELING A LITTLE WOBBLY 6. Patient on Blood Thinner: None 7. History of Hypertension: Y 8. Opioid Therapy greater than 6 weeks: Y Opiate Contract Signed: 02/28/20 9. Risk Assessment Tool Provided: LOW RISK 10. Functional Assessment Tool: 11. Recreational Drug Use: Never Drug Type: Tobacco Use: Never Smoker Tobacco Type: Amount or Packs/day: How Many Years: Alcohol Use: Yes Frequency: Quant:
--- NOTE | 2020-08-22 08:00 | HPC ---
[facility] [address] [place] [address] PAIN MANAGEMENT CONSULTATION Name: ANGELINA CRUZ Room #: REG CLCristobal Ash.#: [id number] Admission: 08/21/20 Attend Phys: Bhavana Vincent Discharge: Date of : 49 Report #: [id number] CC: Bhavana Hill DATE OF SERVICE: 08/21/2020 CHIEF COMPLAINT: Low back pain, bilateral lower extremity pain with paresthesias. HISTORY OF PRESENT ILLNESS: This is a very pleasant 75-year-old female who returns to the pain clinic today to discuss her medications. Today, she is reporting a pain score of 4/10. She has been utilizing her opioid medications only once daily, feeling that she is doing better since her epidural steroid injection by Dr. Mike Molina in early February. Since that time, she has been able to decrease her overall opioid use that she uses to help treat her ongoing low back pain that does radiate into her legs. She does state that they have a sharp, numbness sensation that she characterizes her pain as; it is worse with lying down and weather changes as well as helping her around the house. He has been recovering from surgery and she has been having to help move him, which has caused some increased pain at times. Overall, she feels her medications are beneficial as well as standing and heat. Today, the patient would like to discuss her meloxicam, which we had trialed her on for her nonsteroidal anti-inflammatory. The patient had requested a change at her last visit because she believes nabumetone was causing her to have bleeding tendencies on her arm. The patient has found the meloxicam nonbeneficial. We did discuss other nonsteroidal anti-inflammatories such as Celebrex, which she had tried and failed in the past, feeling that that was not effective in controlling her pain as well as diclofenac gel. Today, she would like to return to nabumetone because she felt much relief in taking that medication. ALLERGIES: PENICILLIN, TAPE, CODEINE, CIPRO, FLAGYL. MEDICATIONS: VESIcare, hydrocodone 5/325 p.r.n., gabapentin 1200 mg morning, 1200 mg midday and 1500 mg at night, irbesartan, vitamin D, Protonix, aspirin, amlodipine and atorvastatin. PQRS: 1. She has history of osteoarthritis in her hands, back and denies rheumatoid arthritis. 2. Height is 5 feet, weight is 197, BMI is 38. 3. Vital signs 168/60, pulse is 66, respirations 18, oxygen sat is 99. 4. Pain score is 4/10. 5. Denies dizziness, does not need help walking or standing, has not fallen in the last 3 months. 6. The patient is not on any blood thinners, but does take medicine for hypertension. Her opioid therapy is greater than 6 weeks; therefore, an opioid signed contract is on the chart. Risk assessment is low. Functional assessment is 35/70. 7. Recreational drug use, she denies. She is not a smoker and occasionally drinks alcohol. According to the prescription monitoring system, she is filling her medications about 3 months apart; therefore, her morphine mEq would be 5 MMEs per day. PHYSICAL EXAMINATION: GENERAL: This is alert and orientated, very pleasant 75-year-old female who is rating her pain score at 4/10 today. HEENT: Normocephalic, atraumatic. Extraocular eye muscles are intact. She is wearing a mask and glasses. EXTREMITIES: No clubbing, no cyanosis, no edema. There are ecchymotic areas on her forearms bilaterally. MUSCULOSKELETAL: She has tenderness in her lumbosacral region that does radiate down her legs. Modified Gaenslen's is positive for axial low back pain. With lumbar provocation testing, her seated straight leg raising is negative. Lower extremity strength is symmetrical at 5/5 with good sensation from L5-S1. ASSESSMENT: 1. Symptomatic lumbar radiculopathy. 2. Failed lumbar spine surgery. 3. Displacement of lumbar intervertebral disk with radiculopathy. 4. Chronic intractable pain. 5. Opioid medication management under terms of written agreement. We reviewed the fact that opiate medications are being used to provide analgesia adequate to support activities of daily living, not attempting to achieve a specific pain score on the 0-10 Visual Analog Scale. The current opiate medications are providing sufficient analgesia to allow the patient to participate in activities of daily living. The patient is not exhibiting any aberrant behavior suggestive of drug diversion. The patient is not having any adverse reactions to medications. The patient is not suffering from daytime somnolence or mental acuity changes. The patient is managing opiate-induced constipation with appropriate jeea-ouv-kyiycaj agents and dietary considerations. The patient was counseled on concern for caution with operating a motor vehicle while using opiate medications. PLAN: 1. We discussed treatment options with the patient today. The patient has found since the epidural steroid injection, she is requiring less medications, taking about 1 tablet a day. Based on this, we will offer her a prescription of hydrocodone 5/325 to be filled in 8 weeks since the patient most recently filled her last prescription. 2. We spent a significant amount of time talking about nonsteroidal anti-inflammatories. The patient thought nabumetone was causing significant bruising. I explained to her I believe it was from the aspirin that she takes on a daily basis, considering she still has significant bruising on her forearms as well today. The patient would like to return to [facility]. We will send scripts electronically for, #90 with 5 additional refills, instructing first the patient to try twice a day to see if her pain is controlled with 2-day dosing. If not, then she may return to 3 times a day. 3. We did discuss Voltaren gel that she may use as needed to her feet, hands as well as it is duch-xzh-bogzpcz medication that she may take in place of her nabumetone. The patient verbalizes understanding. 4. The patient instructed to call if she feels like she needs another lumbar epidural steroid injection by Dr. Mike Molina. Otherwise, she will follow up as needed within 6 months. The patient is seen in collaboration with Dr. Mike Molina. <ELECTRONICALLY SIGNED> By: Bhavana Vincent 08/22/20 0800 1320 [id number] Bhavana Vincent /nt
== END ==
LOC: PAIN 06:51
PROVIDERS: ATTEND Clinical Nurse Specialist Adult Health
DX: M51.16 Intervertebral disc disorders with radiculopathy, lumbar region (principal); M79.604 Pain in right leg; M79.605 Pain in left leg; R20.2 Paresthesia of skin; G89.29 Other chronic pain; M96.1 Postlaminectomy syndrome, not elsewhere classified; F11.20 Opioid dependence, uncomplicated; Z88.8 Allergy status to other drugs, medicaments and biological substances; Z79.899 Other long term (current) drug therapy

== ENCOUNTER → 2020-09-07 | Outpatient (CLI) | payer OTHER, BC | LOC: SJCVC 13:12 | PROVIDERS: ATTEND Internal Medicine Cardiovascular Disease | DX: R94.31 Abnormal electrocardiogram [ECG] [EKG] (principal); I35.0 Nonrheumatic aortic (valve) stenosis; E78.00 Pure hypercholesterolemia, unspecified; I10 Essential (primary) hypertension; G89.29 Other chronic pain; Z82.49 Family history of ischemic heart disease and other diseases of the circulatory system ==

== ENCOUNTER → 2020-11-29 | Outpatient (CLI) | payer OTHER, BC | LOC: SJCVC 09:41 | PROVIDERS: ATTEND Internal Medicine Cardiovascular Disease | DX: R94.31 Abnormal electrocardiogram [ECG] [EKG] (principal); I35.0 Nonrheumatic aortic (valve) stenosis; I10 Essential (primary) hypertension; E78.00 Pure hypercholesterolemia, unspecified; Z82.49 Family history of ischemic heart disease and other diseases of the circulatory system; Z79.82 Long term (current) use of aspirin; Z79.899 Other long term (current) drug therapy; Z90.49 Acquired absence of other specified parts of digestive tract; Z90.710 Acquired absence of both cervix and uterus; Z98.890 Other specified postprocedural states ==

== ENCOUNTER 2021-02-28 17:26 | Emergency (ER) | payer OTHER, BC ==
[~2021-02-28] VITALS: Ht 152.4 cm; Wt 90.7 kg
[~2021-02-28 17:26] MED LIST changes: -VESICARE 5 MG TA5 M1 PO; +VESICARE10 M1 PO
[2021-02-28] MEDS ORDERED: BYSTOLIC10 MG PO (17:53)
[2021-02-28] MEDS ORDERED: BENICAR20 MG PO (17:53)
[2021-02-28] MEDS ORDERED: VALCYTE450 MG PO (17:54)
[2021-02-28 18:06] LABS: ABSOLUTE NEUTROPHILS 4.9 thou/uL (1.4-8.2); BASOPHILS 0.6 % (0.0-2.0); HEMATOCRIT 42.2 % (37.0-47.0); HEMOGLOBIN 14.1 gm/dL (12.0-15.0); LYMPHOCYTES 14.5 % (24.0-44.0); MCH 30.5 pg (26.0-34.0); MCHC 33.3 g/dL (28.0-37.0); MCV 91.6 fL (80.0-100.0); PLATELET COUNT 208 thou/uL (150-400); POLYS 74.9 % (36.0-66.0); RBC 4.61 mil/uL (4.20-5.00); RDW 13.8 % (10.5-14.5); WBC 6.5 thou/uL (4.0-11.0)
[2021-02-28 18:18] LABS: ANION GAP 11 mmol/L (7-16); BUN 22 mg/dL (7-18); CALCIUM 9.2 mg/dL (8.5-10.1); CHLORIDE 104 mmol/L (98-107); CO2 27 mmol/L (21-32); GLUCOSE 114 mg/dL (74-106); POTASSIUM 4.2 mmol/L (3.5-5.1); SODIUM 142 mmol/L (136-145)
[2021-02-28 18:30] LABS: AMYLASE 42 U/L (25-115); DIRECT BILIRUBIN < 0.1 mg/dL (<0.1-0.2); LIPASE 137 U/L (73-393); MAGNESIUM 1.8 mg/dL (1.8-2.4); PHOSPHORUS 4.2 mg/dL (2.5-4.9); SGOT 22 U/L (15-37); SGPT 34 U/L (30-65); TOTAL BILIRUBIN 0.4 mg/dL (0.2-1.0); TOTAL PROTEIN 7.4 g/dL (6.4-8.2); TROPONIN-I <0.06 ng/mL (<0.06)
[2021-02-28] MEDS ORDERED: PROTONIX40 MG PO (19:16)
[2021-02-28 19:26] VITALS: BP 179/62
--- NOTE | 2021-03-01 07:05 | EKG ---
[place] [address] [facility] [facility] [place] [address] ELECTROCARDIOGRAM REPORT Name: ANTHONYANGELINA EDY [facility] [id number] Admission: 02/28/21 Attend Phys: Discharge: 02/28/21 Date of : 49 Report #: [id number] [facility] ED Test Date: 2021-02-28 Test Time: 17:37:28 Pat Name: ANGELINA CRUZ Department: Room: Gender: F Visual Display Associate: moses : 1945 Requested By: Gaston Garcia Order Number: [id number] MD: Orville Farley Measurements Intervals [place] Rate: 53 P: 45 MD: 154 QRS: -27 QRSD: 100 T: -6 QT: 496 QTc: 466 Interpretive Statements Sinus rhythm Ventricular premature complex Borderline left axis deviation Abnormal R-wave progression, early transition Borderline T abnormalities, inferior leads Compared to ECG 03/07/2013 16:17:51 Ventricular premature complex(es) now present T-wave abnormality still present Electronically Signed On 03-01-2021 7:05:08 CDT by Orville Farley [email or web address] <ELECTRONICALLY SIGNED> By: Orville Farley MD, FACC 03/01/21 0705 1737 173 Orville Farley MD, [facility] /EPI
[2021-03-05] MEDS ORDERED: NABUMETONE 500500 M2 PO (09:43)
[2021-03-05] MEDS ORDERED: BACLOFEN 10MG T10 MG PO (09:43)
[2021-03-05] MEDS ORDERED: NEURONTIN600 MG PO (09:43)
[2021-03-05] MEDS ORDERED: HYDROCODON-ACE1 EAC7 PO (10:10)
[2021-03-05] MEDS ORDERED: NORCO5 PO (10:10)
== END 2021-02-28 19:26 | disposition home or self-care (01) ==
LOC: ER 17:26
PROVIDERS: Emergency Medicine
DX: R07.89 Other chest pain (principal); E86.0 Dehydration; K21.9 Gastro-esophageal reflux disease without esophagitis; I10 Essential (primary) hypertension; Z88.0 Allergy status to penicillin; Z88.5 Allergy status to narcotic agent; Z79.899 Other long term (current) drug therapy; Z79.82 Long term (current) use of aspirin; Z98.890 Other specified postprocedural states

== ENCOUNTER → 2021-06-11 | Outpatient (CLI) | payer OTHER, BC ==
[~2021-06-11] VITALS: Ht 152.4 cm; Wt 87.9 kg
[~2021-06-11] MED LIST changes: +BENICAR20 MG PO; +BYSTOLIC10 MG PO; +NORCO5 PO; +PROTONIX40 MG PO; +VALCYTE450 MG PO
[2021-06-11 09:21] VITALS: BP 170/73
--- NOTE | 2021-06-11 09:33 | NUR ---
Pain Clinic Assessment: 1. History of Osteoarthritis: B/L HANDS LOWER BACK FINGERS History of Rheumatoid Arthritis: DENIES 2. Height: 5 ft. 0 in. 152.4 cm. Weight: 193.8 lb. oz. 87.907 kg. Patient's BMI: 37.8 3. Vital Signs: BP: 170/73 Pulse: 74 Resp: 16 Temp: 02 Sat: 100 ECG Mon: 4. Pain Intensity: 4 TO 5 5. Fall Risk: Dizziness: N Needs help standing or walking: N Fallen in the last 3 months: N Fall risk comments: FEELING A LITTLE WOBBLY 6. Patient on Blood Thinner: None 7. History of Hypertension: Y 8. Opioid Therapy greater than 6 weeks: Y Opiate Contract Signed: 02/28/20 9. Risk Assessment Tool Provided: LOW RISK 10. Functional Assessment Tool: 11. Recreational Drug Use: Never Drug Type: Tobacco Use: Never Smoker Tobacco Type: Amount or Packs/day: How Many Years: Alcohol Use: Yes Frequency: Monthly Quant:
--- NOTE | 2021-06-12 08:37 | HPC ---
[facility] [address] [place] [address] PAIN MANAGEMENT CONSULTATION Name: ANGELINA CRUZ Room #: REG [facility] M.R.#: [id number] Admission: 06/11/21 Attend Phys: Mike Molina DO Discharge: Date of : 47 Report #: [id number] THIS REPORT FOR: cc: Mike Willams James A. DO Johnson, James E. DO ~ cc: Mike Willams DO DATE OF SERVICE: 06/11/2021 CHIEF COMPLAINT: Low back pain, bilateral lower extremity pain with paresthesias. HISTORY OF PRESENT ILLNESS: As you know, the patient is a very pleasant 75-year-old female who returns today in followup visit with recurrent low back pain, bilateral lower extremity pain. She is placing pain score anywhere from 4-5/10. She returns today to undergo lumbar epidural injection under fluoroscopic guidance. She is also requesting refill of medication to be provided today. She states that it is difficult for her to make multiple appointments due to her need to remain at home working with her due to his underlying disability. The patient states that previous epidural injection gave excellent benefit. This was done nearly 1 year ago, but unfortunately her symptoms reoccurred. She returns today to undergo lumbar epidural injection and receive refill of medications. ALLERGIES: PENICILLIN, TAPE, CODEINE, CIPROFLOXACIN, FLAGYL. CURRENT MEDICATIONS: Hydrocodone 5/325 one tab every 6 hours p.r.n. for pain, baclofen 10 mg t.i.d., gabapentin 600 mg morning, 600 mg noon and 900 mg at night, nabumetone 500 mg 3 times a day, Valcyte 450 mg once a day, olmesartan 20 mg per day, Bystolic 10 mg per day, VESIcare 10 mg per day, cholecalciferol 1000 units per day, guaifenesin 600 mg b.i.d., pantoprazole 40 mg per day, aspirin 81 mg per day, amlodipine 5 mg once a day. SOCIAL HISTORY: The patient denies tobacco, alcohol or IV or illicit drug use. She is retired, retired years ago, unaccompanied today. IMAGING: No new imaging available. PQRS: The patient has known osteoarthritis of the bilateral hands, lumbar spine. Denies rheumatoid arthritis. She is placing pain today at 4-5/10. She is not a fall risk, has not had a fall in last 3 months. She is on hypertensive agents, but takes no blood thinners. She is on chronic opioids, has a low opiate addiction potential based on assessment tool. Pain impact is 35/70, moderate interference of daily activities secondary to pain. PHYSICAL EXAM: [facility] [address] [place] [address] PAIN MANAGEMENT CONSULTATION Name: ANGELINA CRUZ EDY Room #: REG CLCristobal Mccormick#: [id number] Admission: 06/11/21 Attend Phys: Mike Molina DO Discharge: Date of : 47 Report #: [id number] VITAL SIGNS: Blood pressure 170/73, pulse 74, respiratory rate 16 and unlabored. The patient 100% on room air. Height 5 feet tall, weight 193.8 pounds, BMI calculated 37.8. GENERAL: Well-developed, well-nourished, well-hydrated exogenously obese 75-year-old female appearing stated age, pain is rated anywhere from 4-5/10. HEENT: Normocephalic, atraumatic. Pupils equal, round and responsive. She is wearing a mask in compliance with COVID-19 regulations. EXTREMITIES: Show no clubbing, no cyanosis, no edema. MUSCULOSKELETAL: Seated straight leg raising negative. Supine straight leg raising is negative. Fabere's test is negative. Muscle bulk and tone is equal in lower extremities. Ankle clonus negative. Babinski is negative. ASSESSMENT: 1. Symptomatic lumbar radiculopathy. 2. Failed lumbar spine surgery. 3. Displacement of lumbar intervertebral disk with radiculopathy. 4. Complicated medication management utilizing opioid medications. 5. Chronic intractable pain. PLAN: 1. The patient returns today in followup visit to undergo lumbar epidural injection under fluoroscopic guidance. The patient has been advised of the risks and the benefits of this procedure. These risks include but are not necessarily limited to bleeding, bruising, infection, worsening pain, no relief of pain, also risk of temporary or permanent muscle weakness, temporary or permanent nerve damage, possible paralysis, and . The patient states she understood and wished to proceed. 2. The patient was provided refill prescription of hydrocodone 5/325 one tab p.o. q.6 hours p.r.n. for pain, given the patient #120 tablets releasing today, 4 weeks from today, 8 weeks from today, 3 months' worth of medication. All prescriptions sent via each guide to local pharmacy. 4. We reviewed the fact that opiate medications are being used to provide analgesia adequate to support activities of daily living, not attempting to achieve a specific pain score on the 0-10 Visual Analog Scale. The current opiate medications are providing sufficient analgesia to allow the patient to participate in activities of daily living. The patient is not exhibiting any aberrant behavior suggestive of drug diversion. The patient is not having any adverse reactions to medications. The patient is not suffering from daytime somnolence or mental acuity changes. The patient is managing opiate-induced constipation with appropriate [id number] agents and dietary considerations. The patient was counseled on concern for caution with operating a motor vehicle while using opiate medications. A physical exam was performed and the patient's functional status was evaluated. All patients with back pain were advised against the bed rest greater than 4 days and were advised to return to normal activities. Pain score assessment was [facility] [address] [place] [address] PAIN MANAGEMENT CONSULTATION Name: ANGELINA CRUZ Room #: REG [facility].#: [id number] Admission: 06/11/21 Attend Phys: Mike Molina DO Discharge: Date of : 47 Report #: [id number] noted and the treatment plan was reviewed with the patient. All current medications, both prescribed and OTC were reviewed and reconciled on the electronic medical record. Tobacco screening was accomplished and smoking cessation was advised when indicated. BMI was noted and diet/exercise modification was recommended for all patients following outside normal parameters. I reviewed with the patient today their responsibilities to safeguard prescription medications, reviewed their responsibility to utilize medications only as prescribed by the physician. They are to seek and receive pain medications only from 1 physician group ( [facility]). They are to use 1 pharmacy and keep the clinic informed if they change pharmacies. Their responsibilities include making followup visits in a timely fashion and to avoid abrupt discontinuation of medication usage. Their responsibilities further include bringing their medications (bottles from the pharmacy with residual pills) to the visit for possible confirmation of pill counts and the patient understands it is their responsibility to submit to random drug screens to ensure both that the medications prescribed are present, and that no other controlled substances are present. All prescriptions provided today were generated electronically. 5. The patient was provided a prescription of nabumetone 500 mg dose 1 tab p.o. t.i.d. I have given the patient #90 tablets with 2 refills, 3 months' worth of medication. Prescriptions sent via e-scribe to local pharmacy. 6. The patient was provided refill prescription gabapentin 600 mg dose. She is to take 2 in the morning, 2 at noon, 3 at night, given #210 with 2 refills, 3 months' worth of medication. Prescriptions sent via e-scribe to local pharmacy. 7. We plan to see the patient back in followup visit in 3 months for medication management. She can return in 30 days if a second in the series of epidural injections would be necessary. DESCRIPTION OF PROCEDURE: L5-S1 right parasagittal epidural steroid injection under fluoroscopic guidance. After obtaining written consent, the patient was taken back to fluoroscopy suite, placed in prone position with pillow under abdomen to decrease lumbar lordosis. Skin overlying lumbosacral area prepped and draped in aseptic fashion. The L5-S1 vertebral interspace identified by AP fluoroscopy. Skin and subcutaneous tissue overlying target site injection anesthetized with 3 mL 1% lidocaine. A 20 gauge 3-1/2 inch Tuohy needle advanced under fluoroscopic guidance towards the epidural space using a right parasagittal approach. Epidural space identified using loss of resistance to air technique. After negative aspiration for heme or cerebrospinal fluid, 1 mL of Omnipaque injected. Lumbar epidurogram confirmed using both AP and lateral fluoroscopy. After negative aspiration for [address] [address] PAIN MANAGEMENT CONSULTATION Name: ANGELINA CRUZ Room #: REG LACHELLE Mccromick#: [id number] Admission: 06/11/21 Attend Phys: Mike Molina DO Discharge: Date of : 47 Report #: [id number] heme or cerebrospinal fluid, 5 mL solution containing 2 mL 40 mg per mL 80 mg total triamcinolone along with 3 mL of lidocaine, 1% injected slowly. Needle retracted residential flushed with 1 mL of 1% lidocaine and then removed. Sterile bandage placed over injection site. No new motor deficits present in lower extremity following procedure. The patient tolerated the procedure well, carefully escorted to recovery room in stable condition. No apparent complications. After meeting discharge criteria, the patient discharged home. <ELECTRONICALLY SIGNED> By: Mike Molina DO 06/12/21 0837 [id number] 08 Mike Molina DO /nt
== END | disposition home or self-care (01) ==
LOC: PAIN 07:02
PROVIDERS: ATTEND Anesthesiology Pain Medicine
DX: M51.16 Intervertebral disc disorders with radiculopathy, lumbar region (principal); M96.1 Postlaminectomy syndrome, not elsewhere classified; G89.29 Other chronic pain; I10 Essential (primary) hypertension; M19.90 Unspecified osteoarthritis, unspecified site; K21.9 Gastro-esophageal reflux disease without esophagitis; Z98.890 Other specified postprocedural states; Z79.899 Other long term (current) drug therapy; Z79.891 Long term (current) use of opiate analgesic; Z88.0 Allergy status to penicillin; Z88.8 Allergy status to other drugs, medicaments and biological substances

== ENCOUNTER → 2021-08-29 | Outpatient (CLI) | payer OTHER, BC | LOC: SJCVCIMAG 09:18 | PROVIDERS: ATTEND Internal Medicine Cardiovascular Disease | DX: R94.31 Abnormal electrocardiogram [ECG] [EKG] (principal); I08.8 Other rheumatic multiple valve diseases; I10 Essential (primary) hypertension; E78.00 Pure hypercholesterolemia, unspecified; E78.1 Pure hyperglyceridemia; K21.9 Gastro-esophageal reflux disease without esophagitis; F41.9 Anxiety disorder, unspecified; Z82.49 Family history of ischemic heart disease and other diseases of the circulatory system; Z88.0 Allergy status to penicillin; Z88.5 Allergy status to narcotic agent; Z88.8 Allergy status to other drugs, medicaments and biological substances; Z91.09 Other allergy status, other than to drugs and biological substances; Z72.89 Other problems related to lifestyle; Z79.82 Long term (current) use of aspirin; Z79.891 Long term (current) use of opiate analgesic ==

== ENCOUNTER → 2021-10-15 | Outpatient (CLI) | payer OTHER, BC ==
[~2021-10-15] VITALS: Ht 152.4 cm; Wt 89.1 kg
[~2021-10-15] MED LIST changes: +RELAFEN500 M1 PO
[2021-10-15 10:03] VITALS: BP 176/72
--- NOTE | 2021-10-15 10:12 | NUR ---
Pain Clinic Assessment: 1. History of Osteoarthritis: B/L HANDS LOWER BACK FINGERS History of Rheumatoid Arthritis: DENIES 2. Height: 5 ft. 0 in. 152.4 cm. Weight: 196.4 lb. oz. 89.087 kg. Patient's BMI: 38.4 3. Vital Signs: BP: 176/72 Pulse: 52 Resp: 20 Temp: 02 Sat: 98 ECG Mon: 4. Pain Intensity: 4 5. Fall Risk: Dizziness: N Needs help standing or walking: N Fallen in the last 3 months: N Fall risk comments: FEELING A LITTLE WOBBLY 6. Patient on Blood Thinner: None 7. History of Hypertension: Y 8. Opioid Therapy greater than 6 weeks: Y Opiate Contract Signed: 02/28/20 9. Risk Assessment Tool Provided: LOW RISK 10. Functional Assessment Tool: 11. Recreational Drug Use: Never Drug Type: Tobacco Use: Never Smoker Tobacco Type: Amount or Packs/day: How Many Years: Alcohol Use: Yes Frequency: Special Occasions Quant: 1
--- NOTE | 2021-10-17 13:55 | HPC ---
[facility] [address] [address] PAIN MANAGEMENT CONSULTATION Name: ANGELINA CRUZ Room #: REG [facility] M..#: [id number] Admission: 10/15/21 Attend Phys: Bhavana Vincent Discharge: Date of : 47 Report #: [id number] THIS REPORT FOR: cc: Mike Willams James A. DO Hocker, Amanda CNS ~ cc: Mike Willams DO, James E. Johnson, DO DATE OF SERVICE: 10/15/2021 CHIEF COMPLAINT: Low back pain, bilateral lower extremity pain, and paresthesias. HISTORY OF PRESENT ILLNESS: As you know, this is a very pleasant 76-year-old female who returns today for renewal of her medications and to discuss a possible epidural injection. Today, the patient is reporting a pain score of 4/10, though she reports it can be worst earlier in the morning when she first gets out of bed before she takes her medications. She notices her pain across her low back, described her as a brick across her low back, and also radiating into her legs and she describes it as a sharp, numbness sensation. She does care for her at home and does most of the housework. This does aggravate her pain as well. She believes the medication of hydrocodone as well as nabumetone and gabapentin have been beneficial as well as heat. She denies significant constipation or daytime somnolence as a result of these medications. The patient reports that she had an epidural in June that was beneficial in helping alleviate her pain at least 80% for the past several months, she says. She feels like it has gradually returned back to her baseline pain and would like to schedule another injection prior to the end of the year. ALLERGIES: PENICILLIN, TAPE, CODEINE, CIPRO, AND FLAGYL. CURRENT MEDICATIONS: Nabumetone 500 mg t.i.d., gabapentin, hydrocodone, baclofen, Acyclovir, Benicar, Bystolic, VESIcare, Mucinex p.r.n., Protonix, aspirin, and amlodipine. PQRS: 1. She has known arthritic osteoarthritis in her hands, back, and fingers. Denies any rheumatoid arthritis. Height is 5 feet. Weight is 196, BMI is 38. 2. Vital signs 176/72, pulse is 52, respirations 20, and oxygen sat is 98%. 3. Pain score is 4/10. 4. Denies dizziness. Does not need help walking or standing, has not fallen in the last 3 months. 5. The patient is not on any blood thinners, but does take medicine for hypertension. 6. Her opioid therapy is greater than 6 weeks; therefore, an opioid signed [place] [address] PAIN MANAGEMENT CONSULTATION Name: ANGELINA CRUZ EDY Room #: REG LACHELLE Mccormick#: [id number] Admission: 10/15/21 Attend Phys: Bhavana Vincent Discharge: Date of : 47 Report #: [id number] 7. Risk assessment is low. Functional assessment is 35/70. 8. Recreational drug use, she denies. She is not a smoker and occasionally drinks alcohol. According to the prescription monitoring system, she is filling appropriately her medications. Her morphine mEq according to the CDC guidelines is 20. There is a urine drug screen on the chart that is appropriate as well. PHYSICAL EXAMINATION: GENERAL: This is alert and orientated, well-developed, well-nourished, well-hydrated 76-year-old female who appears her stated age. She is somewhat obese. She is a good historian, rating her pain score today at 4/10. HEENT: Normocephalic, atraumatic. Extraocular muscles are intact. She is wearing a mask for COVID precautions. EXTREMITIES: No clubbing, no cyanosis, no edema. MUSCULOSKELETAL: Seated straight leg raising is negative. She has tenderness in the lumbar, sacral region that does radiate down her legs bilaterally, greater on the left today following the L5-S1 dermatomal distribution. Muscle bulk and tone is equal and symmetrical in her lower extremities. PLAN: 1. The patient would like to continue on her hydrocodone 5/325, scripts will be sent electronically by Dr. Molina for #120 for 3 additional months. The patient will also continue her gabapentin 600 mg tablet, she takes 2 in the morning and 2 midday, and 3 at bedtime. Scripts sent electronically. 2. We will schedule the patient back with Dr. Mike Molina for another lumbar epidural steroid injection at the L5-S1 level. She does receive significant improvement at least 80% for 2 months from her previous one and this will be her second injection this year. Time spent on the patient in consultation, reviewing recent studies and clinical notes, physical examination and correlation of physical findings and medical documentation to determine possible treatment, 17 minutes. Time spent in preparation for appointment, reviewing prescription, monitoring system reports, reviewing previous records and proposed treatment options, reviewing current medications, 5 minutes. Time spent preparing and sending electronic prescriptions with collaborating physician, Dr. Mike Molina, documentation of visit and plan of treatment, 5 minutes. Total time spent 27 minutes. <ELECTRONICALLY SIGNED> By: Bhavana Vincent 10/17/21 1355 [id number] Bhavana vale
== END ==
LOC: PAIN 06:58
PROVIDERS: ATTEND Clinical Nurse Specialist Adult Health
DX: M54.50 Low back pain, unspecified (principal); M79.661 Pain in right lower leg; M79.662 Pain in left lower leg; Z79.899 Other long term (current) drug therapy; Z88.8 Allergy status to other drugs, medicaments and biological substances; Z88.0 Allergy status to penicillin

== ENCOUNTER → 2021-10-29 | Outpatient (CLI) | payer OTHER, BC ==
[~2021-10-29] VITALS: Ht 152.4 cm; Wt 89.1 kg
[2021-10-29 10:39] VITALS: BP 146/74
--- NOTE | 2021-10-29 10:48 | NUR ---
Pain Clinic Assessment: 1. History of Osteoarthritis: B/L HANDS LOWER BACK FINGERS History of Rheumatoid Arthritis: DENIES 2. Height: 5 ft. 0 in. 152.4 cm. Weight: 196.4 lb. oz. 89.087 kg. Patient's BMI: 38.4 3. Vital Signs: BP: 146/74 Pulse: 49 Resp: 16 Temp: 02 Sat: 98 ECG Mon: 4. Pain Intensity: 6 5. Fall Risk: Dizziness: N Needs help standing or walking: N Fallen in the last 3 months: N Fall risk comments: FEELING A LITTLE WOBBLY 6. Patient on Blood Thinner: None 7. History of Hypertension: Y 8. Opioid Therapy greater than 6 weeks: Y Opiate Contract Signed: 02/28/20 9. Risk Assessment Tool Provided: LOW RISK 10. Functional Assessment Tool: 11. Recreational Drug Use: Never Drug Type: Tobacco Use: Never Smoker Tobacco Type: Amount or Packs/day: How Many Years: Alcohol Use: Yes Frequency: Quant:
--- NOTE | 2021-10-30 07:54 | HPC ---
[facility] [place] [address] PAIN MANAGEMENT CONSULTATION Name: ANGELINA CRUZ Room #: REG LACHELLE Mihir.#: [id number] Admission: 10/29/21 Attend Phys: Mike Molina DO Discharge: Date of : 47 Report #: [id number] THIS REPORT FOR: cc: Mike Willams,Mike Ramirez DO ~ cc: Mike Willams DO DATE OF SERVICE: 10/29/2021 REFERRING PHYSICIAN: Dr. Mike Willams CHIEF COMPLAINT: Low back pain, bilateral lower extremity pain with paresthesias. HISTORY OF PRESENT ILLNESS: As you know, the patient is a very pleasant 76-year-old female returning today in followup visit for epidural injection under fluoroscopic guidance. She reports pain level today of 6/10. The most recent epidural injection provided gave improvement in symptoms of greater than 60%, lasting until recently. She returns today in followup visit requesting next in the series of epidural injections. The patient states that she has been taking care of her of late, who has been debilitated by his underlying disease processes and this has caused exacerbation of the patient's symptoms. She does the majority of the housework and care of her , which puts an excessive strain on her lumbar region. She returns today requesting a lumbar epidural injection under fluoroscopic guidance. ALLERGIES: PENICILLIN, TAPE, CODEINE, CIPROFLOXACIN, FLAGYL. CURRENT MEDICATIONS: See chart. SOCIAL HISTORY: The patient denies tobacco, alcohol or IV or illicit drug use. She is unaccompanied at today's visit. IMAGING: No new imaging available. PQRS: The patient has known arthritic changes of the bilateral hands, cervical spine, lumbar spine. She is placing pain today at 6/10. She is not a fall risk, has not had a fall in last 3 months. She is not on blood thinners, but is treated for hypertension. She is on chronic opioids, has a low opioid addiction potential. Pain impact is 35/70, moderate interference of daily activities secondary to pain. PHYSICAL EXAMINATION: VITAL SIGNS: Blood pressure 146/74, pulse is 49, respiratory rate 16 and unlabored. The patient is 98% on room air. Height 5 feet tall, weight 196.4 pounds, BMI calculated 38.4. [address] [address] PAIN MANAGEMENT CONSULTATION Name: ANGELINA CRUZ Room #: REG CLCristobal Ash.#: [id number] Admission: 10/29/21 Attend Phys: Mike Molina DO Discharge: Date of : 47 Report #: [id number] GENERAL: Well-developed, well-nourished, well-hydrated, morbidly obese 76-year-old female appearing stated age, pain is rated today 6/10. HEENT: Normocephalic, atraumatic. Pupils equal, round and responsive. She is wearing a mask in compliance with COVID-19 regulations. EXTREMITIES: Show no clubbing, no cyanosis. No appreciable edema. MUSCULOSKELETAL: Seated straight leg raising negative. Supine straight leg raising negative. Well-healed surgical scars over the lumbar region consistent with the patient's history. Muscle bulk and tone is equal and symmetrical in lower extremities. Ankle clonus negative. Babinski is negative. Gait is antalgic. ASSESSMENT: 1. Symptomatic lumbar radiculopathy. 2. Failed lumbar spine surgery. 3. Displacement of lumbar intervertebral disk with radiculopathy. 4. Lumbar degeneration. 5. Chronic intractable pain. PLAN: 1. The patient returns today in followup visit to undergo lumbar epidural injection under fluoroscopic guidance. The patient reported excellent benefit with previous injection. She returns today in followup visit requesting next in the series. She has been advised risks and benefits of this procedure, states understood and wished to proceed. 2. No medication changes made at today's visit. The patient will continue current medical therapy as prior prescribed. 3. We will see the patient back in followup visit on an as needed basis for the next in the series of injections. We are hopeful the patient will once again see good and prolonged benefit with the injection provided today. PROCEDURE NOTE. DESCRIPTION OF PROCEDURE: L5-S1 interlaminar epidural steroid injection under fluoroscopic guidance. After obtaining written consent, the patient was taken back to fluoroscopy suite, placed in prone position with pillow under abdomen to decrease lumbar lordosis. Skin overlying lumbosacral area prepped and draped in aseptic fashion. The L5-S1 vertebral interspace identified by AP fluoroscopy. Skin and subcutaneous tissue overlying target site injection, anesthetized with 3 mL 1% lidocaine. A 20 gauge 3-1/2 inch Tuohy needle advanced under fluoroscopic guidance towards the epidural space using midline approach. Epidural space identified using loss of resistance to air technique. After negative aspiration for heme or cerebrospinal fluid, 1 mL of Omnipaque injected. Lumbar epidurogram was [facility] [address] [place] [address] PAIN MANAGEMENT CONSULTATION Name: ANGELINA CRUZ Room #: [facility] [id number] Admission: 10/29/21 Attend Phys: Mike Molina DO Discharge: Date of : 47 Report #: [id number] confirmed using both AP and lateral fluoroscopy. After negative aspiration for heme or cerebrospinal fluid, 5 mL solution containing 2 mL 40 mg per mL 80 mg total triamcinolone along with 3 mL of lidocaine, 1% injected slowly. Needle retracted penitentiary flushed with 1 mL of 1% lidocaine and removed. Sterile bandage placed over injection site. No new motor deficits present in the lower extremities following procedure. The patient tolerated the procedure well, carefully escorted to recovery room in stable condition. No apparent complications. After meeting discharge criteria, the patient discharged home. <ELECTRONICALLY SIGNED> By: Mike Molina DO 10/30/21 0754 [id number] Mike Molina DO /nt
== END | disposition home or self-care (01) ==
LOC: PAIN 07:02
PROVIDERS: ATTEND Anesthesiology Pain Medicine
DX: M51.16 Intervertebral disc disorders with radiculopathy, lumbar region (principal); M96.1 Postlaminectomy syndrome, not elsewhere classified; G89.29 Other chronic pain; I10 Essential (primary) hypertension; M19.90 Unspecified osteoarthritis, unspecified site; Z98.890 Other specified postprocedural states; Z79.899 Other long term (current) drug therapy; Z79.891 Long term (current) use of opiate analgesic; Z88.0 Allergy status to penicillin; Z88.8 Allergy status to other drugs, medicaments and biological substances